=== PATIENT | male | born 1955 | race Caucasian/White ===

== ENCOUNTER 2019-02-23 17:43 | Inpatient (IN) | payer OTHER ==
[~2019-02-23] VITALS: Ht 170.2 cm; Wt 103.0 kg
[~2019-02-23 17:43] MED LIST: ASPI-903 PO; CARV6.2579 PO; HYDR-3601 PO; HYDR-762 PO; LISI10TA2 PO; NITR-58 PO; SIMV40TA3 PO; TAMS-14 PO; TOR15I IV
[2019-02-23] MEDS ORDERED: SOD CHLORIDE 0.9% 500 ML IV STA (19:26)
--- NOTE | 2019-02-23 19:28 | ERD ---
ER Documentation Chief Complaint Chief Complaint mid epigastric pain with mild n/v x 1 day ROS All systems reviewed and are negative except as per history of present illness. Medications Home Meds Active Scripts Nitrofurantoin Monohyd Macrocr* (Macrobid*) 100 Mg Capsr, 100 MG PO BID for 14 Days, CAP Prov:JOHNNY DURAND 01/09/15 Ketorolac Tromethamine* (Toradol*) 15 Mg/Ml Soln, 15 MG IV Q6H PRN for PAIN, #20 VIAL Prov:JOHNNY DURAND 01/09/15 Tamsulosin Hcl* (Flomax*) 0.4 Mg Cap.er.24h, 0.4 MG PO DAILY for 30 Days, CAP Prov:JOHNNY DURAND 01/09/15 Hydrocodone Bit-Acetaminophen* ([place]*) 10-325 Mg Tablet, 1 TAB PO Q6 PRN for PAIN, #10 TAB Prov:JOHNNY DURAND 01/09/15 Reported Medications Carvedilol* (Carvedilol*) 6.25 Mg Tablet, 6.25 MG PO BID, TAB 01/09/15 Simvastatin (Simvastatin) 40 Mg Tablet, 40 MG PO HS, TAB 01/09/15 Aspirin* (Aspirin* Chew) 81 Mg Tab.chew, 81 MG PO DAILY, TAB.CHEW 01/09/15 Lisinopril* (Lisinopril*) 10 Mg Tablet, 10 MG PO DAILY, TAB 01/09/15 Allergies Allergies: Coded Allergies: No Known Allergy (Unverified , 01/09/15) PMhx/Soc Medical and Surgical Hx: pt denies Surgical Hx History of Surgery: Yes (HEART SURGERY) Anesthesia Reaction: No Hx Neurological Disorder: No Hx Respiratory Disorders: No Hx Cardiac Disorders: No Hx Psychiatric Problems: No Hx Miscellaneous Medical Probl: No Hx Alcohol Use: No Hx Substance Use: No Hx Tobacco Use: No Smoking Status: Never smoker Physical Exam Vitals Vital Signs Date Temp Pulse Resp B/P (MAP) Pulse Ox O2 O2 Flow FiO2 Time Delivery Rate 02/23/19 99.2 87 16 133/89 97 18:13 (104) Result Diagram: 02/23/19195802/23/191958 Results 24 hrs Laboratory Tests Test 02/23/19 19:35 02/23/19 19:59 Urine Color YELLOW Urine Clarity CLEAR Urine pH 5.0 Urine Specific [place] 1.019 Urine Ketones NEGATIVE mg/dL Urine Nitrite NEGATIVE mg/dL Urine Bilirubin NEGATIVE mg/dL Urine Urobilinogen NEGATIVE mg/dL Urine Leukocyte Esterase NEGATIVE Lisy/ul Urine Microscopic RBC 0 /HPF Urine Microscopic WBC 1 /HPF Urine Mucus FEW /HPF Urine Hemoglobin 1+ mg/dL Urine Glucose NEGATIVE mg/dL Urine Total Protein NEGATIVE mg/dl White Blood Count 9.2 10^3/ul Red Blood Count 5.22 10^6/ul Hemoglobin 15.1 g/dl Hematocrit 47.3 % Mean Corpuscular Volume 90.6 fl Mean Corpuscular Hemoglobin 28.9 pg Mean Corpuscular Hemoglobin Concent 31.9 g/dl Red Cell Distribution Width 13.5 % Platelet Count 295 10^3/UL Mean Platelet Volume 9.0 fl Immature Granulocytes % 0.400 % Neutrophils % 67.5 % Lymphocytes % 22.5 % Monocytes % 8.5 % Eosinophils % 0.8 % Basophils % 0.3 % Nucleated Red Blood Cells % 0.0 /100WBC Immature Granulocytes # 0.040 10^3/ul Neutrophils # 6.2 10^3/ul Lymphocytes # 2.1 10^3/ul Monocytes # 0.8 10^3/ul Eosinophils # 0.1 10^3/ul Basophils # 0.0 10^3/ul Nucleated Red Blood Cells # 0.0 10^3/ul Sodium Level 139 mmol/L Potassium Level 4.2 mmol/L Chloride Level 104 mmol/L Carbon Dioxide Level 26 mmol/L Anion Gap 9 Blood Urea Nitrogen 11 mg/dl Creatinine 1.40 mg/dl Est Glomerular Filtrat Rate mL/min 51 mL/min Glucose Level 111 mg/dl Calcium Level 9.6 mg/dl Total Bilirubin 1.0 mg/dl Direct Bilirubin 0.00 mg/dl Indirect Bilirubin 1.0 mg/dl Aspartate Amino Transf (AST/SGOT) 22 IU/L Alanine Aminotransferase (ALT/SGPT) 19 IU/L Alkaline Phosphatase 58 IU/L Troponin I < 0.012 ng/ml Total Protein 8.1 g/dl Albumin 4.2 g/dl Globulin 3.90 g/dl Albumin/Globulin Ratio 1.07 Lipase 20 U/L Current Medications Medications Dose Sig/Landry Start Time Status Last (Trade) Ordered Route PRN Stop Time Admin Dose Reason Admin Sodium 500 ml @ Q1H STAT 02/23/19 DC 02/23/19 Chloride 500 mls/hr IV 19:26 19:49 02/23/19 20:25 Morphine 1 mg ONCE STAT 02/23/19 DC 02/23/19 Sulfate IV 19:29 19:49 (morphine) 02/23/19 19:30 40 ml ONCE ONCE 02/23/19 DC 02/23/19 Miscellaneous PO 19:30 19:49 Medication 02/23/19 19:31 (Gi Cocktail (2)) Morphine 2 mg ONCE STAT 02/23/19 DC 02/23/19 Sulfate IV 21:07 21:11 (morphine) 02/23/19 21:09 EKG read by me: Rate/Rhythm: Regular rate and rhythm at a rate of 78 Intervals: Normal No acute ST changes. No T wave inversion Impression: No evidence of acute ischemia or arrhythmia Departure Condition: Stable PEBBLES HAIDER MD Feb 23, 2019 19:28
[2019-02-23] MEDS ORDERED: morphine 2 MG INJ IV STA ×2 (19:29→21:07)
[2019-02-23] MEDS ORDERED: LIDOCAINE/MYLANTA 40 ML BTL PO ONE (19:30)
--- NOTE | 2019-02-23 22:16 | ERD ---
ER Documentation Chief Complaint Chief Complaint epigastric pain 1 day HPI The patient is a 62-year-old male, presenting to the ER because of epigastric" abdominal pain for 1 day, denies similar symptoms previously, denies fever, chi lls, neck pain, chest pain, dyspnea. The abdominal pain is moderate, worse with eating. He denies of vomiting, diarrhea, complains of constipation, denies dysuria. He does not smoke nor drink Past medical history: Hypertension, dyslipidemia, CAD, history of kidney stone, cholelithiasis Past surgical history: Uncertain stent PCI ROS All systems reviewed and are negative except as per history of present illness. Medications Home Meds Active Scripts Nitrofurantoin Monohyd Macrocr* (Macrobid*) 100 Mg Capsr, 100 MG PO BID for 14 Days, CAP Prov:KYM DURANDAR 01/09/15 Ketorolac Tromethamine* (Toradol*) 15 Mg/Ml Soln, 15 MG IV Q6H PRN for PAIN, #20 VIAL Prov:JOHNNY DURAND 01/09/15 Tamsulosin Hcl* (Flomax*) 0.4 Mg Cap.er.24h, 0.4 MG PO DAILY for 30 Days, CAP Prov:KYM DURANDAR 01/09/15 Hydrocodone Bit-Acetaminophen* ([place]*) 10-325 Mg Tablet, 1 TAB PO Q6 PRN for PAIN, #10 TAB Prov:JOHNNY DURAND 01/09/15 Reported Medications Carvedilol* (Carvedilol*) 6.25 Mg Tablet, 6.25 MG PO BID, TAB 01/09/15 Simvastatin (Simvastatin) 40 Mg Tablet, 40 MG PO HS, TAB 01/09/15 Aspirin* (Aspirin* Chew) 81 Mg Tab.chew, 81 MG PO DAILY, TAB.CHEW 01/09/15 Lisinopril* (Lisinopril*) 10 Mg Tablet, 10 MG PO DAILY, TAB 01/09/15 Allergies Allergies: Coded Allergies: No Known Allergy (Unverified , 01/09/15) PMhx/Soc Medical and Surgical Hx: pt denies Surgical Hx History of Surgery: Yes (HEART SURGERY) Anesthesia Reaction: No Hx Neurological Disorder: No Hx Respiratory Disorders: No Hx Cardiac Disorders: No Hx Psychiatric Problems: No Hx Miscellaneous Medical Probl: No Hx Alcohol Use: No Hx Substance Use: No Hx Tobacco Use: No Smoking Status: Never smoker Physical Exam Vitals Vital Signs Date Temp Pulse Resp B/P (MAP) Pulse Ox O2 O2 Flow FiO2 Time Delivery Rate 02/23/19 99.2 87 16 133/89 97 18:13 (104) Physical Exam Const: No acute distress. Head: Atraumatic. Eyes: Normal Conjunctiva. ENT: Normal External Ears, Nose and Mouth. Neck: Full range of motion. No meningismus. Resp: Clear to auscultation bilaterally. Cardio: Regular rate and rhythm. Abd: Soft, non distended, normal bowel sounds, epigastric and right upper quadrant tenderness, no rigidity/rebound/CVA tenderness Skin: No petechiae or rashes. Back: No midline or flank tenderness. Ext: No cyanosis, or edema. Neur: Awake and alert. No focal deficit Psych: Normal Mood and Affect. Result Diagram: 02/23/19195802/23/191958 Results 24 hrs Laboratory Tests Test 02/23/19 19:35 02/23/19 19:59 Urine Color YELLOW Urine Clarity CLEAR Urine pH 5.0 Urine Specific [place] 1.019 Urine Ketones NEGATIVE mg/dL Urine Nitrite NEGATIVE mg/dL Urine Bilirubin NEGATIVE mg/dL Urine Urobilinogen NEGATIVE mg/dL Urine Leukocyte Esterase NEGATIVE Lisy/ul Urine Microscopic RBC 0 /HPF Urine Microscopic WBC 1 /HPF Urine Mucus FEW /HPF Urine Hemoglobin 1+ mg/dL Urine Glucose NEGATIVE mg/dL Urine Total Protein NEGATIVE mg/dl White Blood Count 9.2 10^3/ul Red Blood Count 5.22 10^6/ul Hemoglobin 15.1 g/dl Hematocrit 47.3 % Mean Corpuscular Volume 90.6 fl Mean Corpuscular Hemoglobin 28.9 pg Mean Corpuscular Hemoglobin Concent 31.9 g/dl Red Cell Distribution Width 13.5 % Platelet Count 295 10^3/UL Mean Platelet Volume 9.0 fl Immature Granulocytes % 0.400 % Neutrophils % 67.5 % Lymphocytes % 22.5 % Monocytes % 8.5 % Eosinophils % 0.8 % Basophils % 0.3 % Nucleated Red Blood Cells % 0.0 /100WBC Immature Granulocytes # 0.040 10^3/ul Neutrophils # 6.2 10^3/ul Lymphocytes # 2.1 10^3/ul Monocytes # 0.8 10^3/ul Eosinophils # 0.1 10^3/ul Basophils # 0.0 10^3/ul Nucleated Red Blood Cells # 0.0 10^3/ul Sodium Level 139 mmol/L Potassium Level 4.2 mmol/L Chloride Level 104 mmol/L Carbon Dioxide Level 26 mmol/L Anion Gap 9 Blood Urea Nitrogen 11 mg/dl Creatinine 1.40 mg/dl Est Glomerular Filtrat Rate mL/min 51 mL/min Glucose Level 111 mg/dl Calcium Level 9.6 mg/dl Total Bilirubin 1.0 mg/dl Direct Bilirubin 0.00 mg/dl Indirect Bilirubin 1.0 mg/dl Aspartate Amino Transf (AST/SGOT) 22 IU/L Alanine Aminotransferase (ALT/SGPT) 19 IU/L Alkaline Phosphatase 58 IU/L Troponin I < 0.012 ng/ml Total Protein 8.1 g/dl Albumin 4.2 g/dl Globulin 3.90 g/dl Albumin/Globulin Ratio 1.07 Lipase 20 U/L Current Medications Medications Dose Sig/Landry Start Time Status Last (Trade) Ordered Route PRN Stop Time Admin Dose Reason Admin Sodium 500 ml @ Q1H STAT 02/23/19 DC 02/23/19 Chloride 500 mls/hr IV 19:26 19:49 02/23/19 20:25 Morphine 1 mg ONCE STAT 02/23/19 DC 02/23/19 Sulfate IV 19:29 19:49 (morphine) 02/23/19 19:30 40 ml ONCE ONCE 02/23/19 DC 02/23/19 Miscellaneous PO 19:30 19:49 Medication 02/23/19 19:31 (Gi Cocktail (2)) Morphine 2 mg ONCE STAT 02/23/19 DC 02/23/19 Sulfate IV 21:07 21:11 (morphine) 02/23/19 21:09 Ondansetron 4 mg ONCE STAT 02/23/19 DC 02/24/19 HCl (Zofran IV 23:52 00:09 Inj) 02/24/19 00:06 0.5 mg ONCE STAT 02/23/19 DC 02/24/19 Hydromorphone IV 23:52 00:09 HCl 02/24/19 00:06 (Dilaudid) Sodium 1,000 ml @ [id number] IV 02/24/19 Chloride 70 mls/hr 00:00 IV Flush 3 ml PER 02/24/19 (NS 3 ml) PROTOCOL IV 00:00 Ondansetron 4 mg Q6H PRN 02/24/19 HCl (Zofran IV 00:00 Inj) NAUSEA/VOMITI NG 650 mg Q6H PRN 02/24/19 Acetaminophen PO .PAIN 1-3 00:00 (Tylenol OR TEMP Tab) 0.5 mg Q4H PRN 02/24/19 Hydromorphone IV .SEVERE 00:00 HCl PAIN 7-10 (Dilaudid) Docusate 100 mg Q12H PRN 02/24/19 Sodium PO 00:00 (Colace) .CONSTIPATION Bisacodyl 5 mg DAILY PRN 02/24/19 (Dulcolax) PO 00:00 .CONSTIPATION Procedures/[place] [address] Radiology Main Line: [phone] DIAGNOSTIC IMAGING REPORT Patient: PONCE BHATTI : 1955 Age: 63 Sex: M MR #: [id number] DOS: 02/23/19 2210 Ordering MD: HUNG GUTIERREZ MD Location: [facility] Room/Bed: PROCEDURE: Abdominal ultrasound, limited. CLINICAL INDICATION: Abdominal pain. TECHNIQUE: Multiple real-time images were acquired of the patient's right upper abdomen utilizing a high resolution transducer. COMPARISON: None FINDINGS: The liver demonstrates normal echogenicity and size measuring 16.1 cm. There is no focal mass or intrahepatic biliary ductal dilatation. The portal vein is patent. The gallbladder is not distended. There is an echogenic gallstone within the gallbladder neck measuring 1.3 cm. There is no pericholecystic fluid. There is mild gallbladder wall thickening measuring 3.4 mm. The common bile duct measures 3.9 mm in maximal dimension. The pancreas is obscured by overlying bowel gas. No free fluid is identified. The right kidney is normal size and echogenicity measuring 9.3 cm. There is no focal renal mass or echogenic calculus identified. There is no obstructive uropathy. IMPRESSION: Cholelithiasis with mild gallbladder wall thickening. Pancreas obscured by overlying bowel gas. .Yovani Olmedo, MD, MD Date Time Electronically viewed and signed by .Yovani Olmedo MD, MD on 02/23/2019 23:33 .T/ CC: HUNG GUTIERREZ MD [id number] [place] [address] Radiology Main Line: [phone] DIAGNOSTIC IMAGING REPORT Patient: PONCE BHATTI : 1955 Age: 63 Sex: M MR #: [id number] DOS: 02/23/191925 Ordering MD: PEBBLES HAIDER MD Location: [facility] Room/Bed: PROCEDURE: CT abdomen and pelvis without contrast. CLINICAL INDICATION: Abdominal epigastric pain. TECHNIQUE: CT scan of the abdomen and pelvis without contrast was performed. Sagittal and coronal reformatted images were obtained from the axial source images. DICOM images are available. One or more of the following dose reduction techniques were used: Automated exposure control, adjustment of the mA and/or kV according to patient size, use of iterative reconstruction technique. CTDI = 20.61 mGy; DLP = 1449.42 mGy-cm COMPARISON: 01/09/2015 FINDINGS: Visualized lower thorax: The lung bases are clear. There is no evidence for pleural effusion. The visualized heart is borderline enlarged Liver, gallbladder, pancreas and spleen: The liver is normal and size, contour and attenuation. There is no evidence for a liver mass or ductal dilatation. Cholelithiasis with interval development of gallbladder hydrops and pericholecystic inflammation concerning for acute cholecystitis. No common bile duct abnormality is demonstrated. Fatty infiltration of the pancreas is present without evidence of pancreatitis. The spleen is normal in size. Adrenal glands and genitourinary system: The adrenal glands are normal bilaterally. Development of a 2 mm right upper pole renal calculus without hy dronephrosis. The left kidney is unremarkable, mild bilateral perinephric inflammatory fat stranding is similar to the prior study. The ureters are unremarkable. No urinary bladder abnormality is demonstrated. The prostate gland is normal in size. The scrotum shows no gross abnormality. Gastrointestinal system: The stomach is normal in caliber with no abnormality of significance. The small bowel is normal in caliber with no ileus, obstruction or wall thickening. There is no evidence of appendicitis. Mild constipation pattern is present. There is no evidence for colitis or diverticulitis. Peritoneum, retroperitoneum, lymph nodes and vessels: The abdominal aorta is normal in caliber. There is mild aortic and iliac system atherosclerotic calcification. The inferior vena cava is unremarkable. There is no evidence for adenopathy or mass. There is no ascites. No pneumoperitoneum is present Osseous structures and musculoskeletal findings: There is no fracture, lytic or blastic lesion. Vacuum disc phenomenon with degenerative disc disease at L4-5 and L5-S1 is present. A small fat-containing umbilical hernia is seen No muscular abnormality or soft tissue pathology is present. RPTAT:HJJR IMPRESSION: 1. Compared to the prior CT of 01/09/2015, there has been development of gallbladder hydrops and pericholecystic inflammation in this patient with previously seen cholelithiasis, findings concerning for acute cholecystitis. Consider follow-up evaluation with a nuclear medicine HIDA scan. 2. Interval development of 2 mm right upper pole renal calculus without hy dronephrosis with interval passage of the previously seen distal left ureteral calculus. 3. Fatty atrophy of the pancreas is again noted. 4. Mild constipation pattern. 5. Aortic atherosclerosis is present. 6. Degenerative disc disease at the lower lumbar levels. Physician Nadine Date Time Electronically viewed and signed by Frederick An Physician on 02/23/2019 21:44 JR/ CC: PEBBLES HAIDER MD [id number] [place] [address] Radiology Main Line: [phone] DIAGNOSTIC IMAGING REPORT Patient: PONCE BHATTI : 1955 Age: 63 Sex: M MR #: [id number] DOS: 02/23/19 0000 Ordering MD: PEBBLES HAIDER MD Location: [facility] Room/Bed: PROCEDURE: DX CHEST 1 VIEW CLINICAL INDICATION: Epigastric pain. ED patient. TECHNIQUE: AP Portable chest. COMPARISON: None FINDINGS: Normal cardiac and mediastinal configuration. Aortic calcified plaque absent. No CHF or hilar enlargement. Lungs are clear. No free air under the hemidiaphragms. IMPRESSION: No acute disease. RPTAT: HLRS Darrel Cleaning Physician Date Time Electronically viewed and signed by Darrel Cleaning Physician on 02/23/2019 21:04 RS/ CC: PEBBLES HAIDER MD [id number] EKG: At 7:09 PM read by emergency physician Rate/Rhythm: Normal Sinus Rhythm 78 beats/min QRS, ST, T-waves: No ST elevation, no T inversion low voltage, inferior Q waves Impression: Abnormal EKG EKG: At 9:28 PM read by emergency physician Rate/Rhythm: Normal Sinus Rhythm 75 beats/min QRS, ST, T-waves: No ST elevation, no T inversion low voltage, inferior Q waves Impression: Abnormal EKG Consultation: I notified the call general surgeon Dr. Peacock at 11:50 PM via [email or web address] MEDICAL MAKING DECISION: The patient is a 63-year-old male, presenting with acute symptomatic cholelithiasis, concerning for acute cholecystitis, will need HIDA scan for confirmation He was treated Zofran IV for nausea, Dilaudid 0.5 mg IV and morphine 2 mg IV for pain with good response. The differential diagnoses considered include but are not limited to cholelithiasis, cholecystitis, renal colic, choledocholithiasis, cholangitis, pancreatitis, hepatitis, gastritis, peptic ulcer disease, gastric ulcer, nasra endicitis, cystitis, diverticulitis, partial small bowel obstruction. Departure Diagnosis: Primary Impression: Symptomatic cholelithiasis Additional Impressions: Renal insufficiency Hematuria Condition: Stable Additional Instructions: I discussed the findings with the patient. I notified the patient with Dr. Koch at 11:55 PM via [email or web address] , who was made aware of the lab, the treatment, the patient condition. The patient is admitted to [facility] Disclaimer: Inadvertent spelling and grammatical errors are likely due to EHR/dictation software use and do not reflect on the overall quality of patient care. Also, please note that the electronic time recorded on this note does not necessarily reflect the actual time of the patient encounter. HUNG GUTIERREZ MD Feb 23, 2019 22:16
[2019-02-23] MEDS ORDERED: ONDANSETRON 4 MG INJ IV STA (23:52)
[2019-02-23] MEDS ORDERED: HYDROmorphONE 0.5 MG/0.5 ML SYG IV STA (23:52)
[2019-02-24] MEDS ORDERED: ACETAMINOPHEN 325 MG TAB PO PRN
[2019-02-24] MEDS ORDERED: DOCUSATE SODIUM 100 MG CAP PO PRN
[2019-02-24] MEDS ORDERED: BISACODYL (EC) 5 MG TAB PO PRN
[2019-02-24] MEDS ORDERED: ONDANSETRON 4 MG INJ IV PRN
[2019-02-24] MEDS ORDERED: NACL 0.9% 3 ML SYG IV SCH
--- NOTE | 2019-02-24 00:06 | HP ---
Date/Time of Note Date/Time of Note DATE: 02/24/19 TIME: 00:05 Assessment/Plan VTE Prophylaxis SCD applied (from Nsg): Yes Pharmacological prophylaxis: NA/contraindicated Pharm contraindication: low risk/ambulating Lines/Catheters IV Catheter Type (from Nrsg): Saline Lock Assessment/Plan Hospital Course This is a 63-year-old male being admitted to the [facility] [place] floor for: 1 right upper quadrant pain: Symptomatic cholelithiasis versus early acute cholecystitis. Patient does not have a white blood cell count or fever. However imaging studies do show possible signs of acute cholecystitis. Will obtain HIDA scan. Will put the patient on prophylactic Zosyn. Will advise pain management. Zofran for nausea. General surgery Dr. Peacock has already been been consulted by the ED. Will follow up on recommendations. 2. Coronary artery disease: History of GA., Possible extends 3 Acute kidney injury versus acute on chronic kidney injury: Creatinine of 1.4. This possibly could be chronic. Avoid nephrotoxic agents. Hydrate the patient normal saline. 4 DVT GI prophylaxis: SCDs, no GI prophylaxis indicated Further treatment strategy will be implemented as per the clinical course. Result Diagram: 02/23/19195802/23/191958 Results 24hrs Laboratory Tests Test 02/23/19 19:35 02/23/19 19:59 Urine Color YELLOW Urine Clarity CLEAR Urine pH 5.0 Urine Specific [place] 1.019 Urine Ketones NEGATIVE Urine Nitrite NEGATIVE Urine Bilirubin NEGATIVE Urine Urobilinogen NEGATIVE Urine Leukocyte Esterase NEGATIVE Urine Microscopic RBC 0 Urine Microscopic WBC 1 Urine Mucus FEW A Urine Hemoglobin 1+ H Urine Glucose NEGATIVE Urine Total Protein NEGATIVE White Blood Count 9.2 # Red Blood Count 5.22 Hemoglobin 15.1 Hematocrit 47.3 Mean Corpuscular Volume 90.6 Mean Corpuscular Hemoglobin 28.9 L Mean Corpuscular Hemoglobin Concent 31.9 L Red Cell Distribution Width 13.5 Platelet Count 295 Mean Platelet Volume 9.0 Immature Granulocytes % 0.400 Neutrophils % 67.5 Lymphocytes % 22.5 Monocytes % 8.5 Eosinophils % 0.8 Basophils % 0.3 Nucleated Red Blood Cells % 0.0 Immature Granulocytes # 0.040 H Neutrophils # 6.2 Lymphocytes # 2.1 Monocytes # 0.8 Eosinophils # 0.1 Basophils # 0.0 Nucleated Red Blood Cells # 0.0 Sodium Level 139 Potassium Level 4.2 Chloride Level 104 Carbon Dioxide Level 26 Anion Gap 9 Blood Urea Nitrogen 11 Creatinine 1.40 H Est Glomerular Filtrat Rate mL/min 51 L Glucose Level 111 Calcium Level 9.6 Total Bilirubin 1.0 Direct Bilirubin 0.00 Indirect Bilirubin 1.0 Aspartate Amino Transf (AST/SGOT) 22 Alanine Aminotransferase (ALT/SGPT) 19 Alkaline Phosphatase 58 Troponin I < 0.012 Total Protein 8.1 Albumin 4.2 Globulin 3.90 H Albumin/Globulin Ratio 1.07 Lipase 20 L HPI/ROS Admit Date/Time Admit Date/Time Hx of Present Illness The patient is a 62-year-old male, presenting to the ER because of epigastric" abdominal pain for 1 day, denies similar symptoms previously, denies fever, chills, neck pain, chest pain, dyspnea. The abdominal pain is moderate, worse with eating. He denies of vomiting, diarrhea, complains of constipation, denies dysuria. He does not smoke nor drink ROS Const: As per HPI Eyes : No pain discharge or redness or change in visual acuity ENT: No pain, sore throat, congestion, congestion, dysphagia or discharge Respiratory: No shortness of breath, cough, sputum, wheezing, or pleuritic pain Cardiovascular: No chest pain, palpitation, PND, or edema GI : As per HPI Genitourinary: No dysuria, hematuria, flank pain , discharge or CVA tenderness Musculoskeletal: No joint pain, back pain, neck pain, restricted range of motion in neck or joints Skin: No rash, bruising or hives Neuro: No headache, dizziness, syncope, seizure, focal weakness Endocrine: No polyuria, polydipsia, temperature intolerance Psych: No hallucination, depression, anxiety or suicidal ideation PMH/Family/Social Past Medical History Hypertension, dyslipidemia, CAD, history of kidney stone, history of GA Medications Current Medications Ondansetron HCl (Zofran Inj) 4 mg ONCE STAT IV ; Start 02/23/19 at 23:52; Stop 02/23/19 at 23:53; Status UNV Hydromorphone HCl (Dilaudid) 0.5 mg ONCE STAT IV ; Start 02/23/19 at 23:52; Stop 02/23/19 at 23:53; Status UNV Coded Allergies: No Known Allergy (Unverified , 01/09/15) Past Surgical History Uncertain stent PCI Family History Significant Family History: no pertinent family hx Social History Alcohol Use: none Smoking Status: Never smoker Drug Use: none Exam/Review of Systems Vital Signs Vitals Vital Signs Date Temp Pulse Resp B/P (MAP) Pulse Ox O2 O2 Flow FiO2 Time Delivery Rate 02/23/19 99.2 87 16 133/89 97 18:13 (104) Intake and Output 02/23/19 02/23/19 02/24/19 1515:00 23:00 07:00 IntakeIntake Total 500 ml BalanceBalance 500 ml Exam Exam General: Pleasant male currently lying in bed in no acute distress HEENT: Atraumatic, normocephalic. The pupils are equal, round and reactive. Extraocular motor are intact Neck: Supple with full range of motion. No rigidity or meningismus Chest: Nontender Lungs: Clear to auscultation bilaterally no crackles rales or wheezing Heart: Normal S1-S2, Regular rhythm and rate. No murmur, S3, or S4 Abdomen: Obese, soft , tenderness palpation of the right upper quadrant of the abdomen as well as left lower quadrant. No rebound or guarding. Extremities: Normal to inspection, no edema no cyanosis Neurologic: Normal mental status, speech normal, cranial nerves II through XII are intact, motor and sensory are intact, Additional Comments PROCEDURE: Abdominal ultrasound, limited. CLINICAL INDICATION: Abdominal pain. TECHNIQUE: Multiple real-time images were acquired of the patient's right upper abdomen utilizing a high resolution transducer. COMPARISON: None FINDINGS: The liver demonstrates normal echogenicity and size measuring 16.1 cm. There is no focal mass or intrahepatic biliary ductal dilatation. The portal vein is patent. The gallbladder is not distended. There is an echogenic gallstone within the gallbladder neck measuring 1.3 cm. There is no pericholecystic fluid. There is mild gallbladder wall thickening measuring 3.4 mm. The common bile duct measures 3.9 mm in maximal dimension. The pancreas is obscured by overlying bowel gas. No free fluid is identified. The right kidney is normal size and echogenicity measuring 9.3 cm. There is no focal renal mass or echogenic calculus identified. There is no obstructive uropathy. IMPRESSION: Cholelithiasis with mild gallbladder wall thickening. Pancreas obscured by overlying bowel gas. .Yovani Olmedo MD, MD Date Time Electronically viewed and signed by .Yovani Olmedo MD, MD on 02/23/2019 23:33 .T/ CC: HUNG GUTIERREZ MD [id number] PROCEDURE: CT abdomen and pelvis without contrast. CLINICAL INDICATION: Abdominal epigastric pain. TECHNIQUE: CT scan of the abdomen and pelvis without contrast was performed. Sagittal and coronal reformatted images were obtained from the axial source images. DICOM images are available. One or more of the following dose reduction techniques were used: Automated exposure control, adjustment of the mA and/or kV according to patient size, use of iterative reconstruction technique. CTDI = 20.61 mGy; DLP = 1449.42 mGy-cm COMPARISON: 01/09/2015 FINDINGS: Visualized lower thorax: The lung bases are clear. There is no evidence for pleural effusion. The visualized heart is borderline enlarged Liver, gallbladder, pancreas and spleen: The liver is normal and size, contour and attenuation. There is no evidence for a liver mass or ductal dilatation. Cholelithiasis with interval development of gallbladder hydrops and pericholecystic inflammation concerning for acute cholecystitis. No common bile duct abnormality is demonstrated. Fatty infiltration of the pancreas is present without evidence of pancreatitis. The spleen is normal in size. Adrenal glands and genitourinary system: The adrenal glands are normal bilaterally. Development of a 2 mm right upper pole renal calculus without hydronephrosis. The left kidney is unremarkable, mild bilateral perinephric inflammatory fat stranding is similar to the prior study. The ureters are unremarkable. No urinary bladder abnormality is demonstrated. The prostate gland is normal in size. The scrotum shows no gross abnormality. Gastrointestinal system: The stomach is normal in caliber with no abnormality of significance. The small bowel is normal in caliber with no ileus, obstruction or wall thickening. There is no evidence of appendicitis. Mild constipation pattern is present. There is no evidence for colitis or divert iculitis. Peritoneum, retroperitoneum, lymph nodes and vessels: The abdominal aorta is normal in caliber. There is mild aortic and iliac system atherosclerotic calcification. The inferior vena cava is unremarkable. There is no evidence for adenopathy or mass. There is no ascites. No pneumoperitoneum is present Osseous structures and musculoskeletal findings: There is no fracture, lytic or blastic lesion. Vacuum disc phenomenon with degenerative disc disease at L4-5 and L5-S1 is present. A small fat-containing umbilical hernia is seen No muscular abnormality or soft tissue pathology is present. RPTAT:HJJR IMPRESSION: 1. Compared to the prior CT of 01/09/2015, there has been development of gallbladder hydrops and pericholecystic inflammation in this patient with previously seen cholelithiasis, findings concerning for acute cholecystitis. Consider follow-up evaluation with a nuclear medicine HIDA scan. 2. Interval development of 2 mm right upper pole renal calculus without hydronephrosis with interval passage of the previously seen distal left ureteral calculus. 3. Fatty atrophy of the pancreas is again noted. 4. Mild constipation pattern. 5. Aortic atherosclerosis is present. 6. Degenerative disc disease at the lower lumbar levels. Frederick An Physician Date Time Electronically viewed and signed by Physician Nadine on 02/23/2019 21:44 JR/ CC: PEBBLES HAIDER MD [id number] PROCEDURE: DX CHEST 1 VIEW CLINICAL INDICATION: Epigastric pain. ED patient. TECHNIQUE: AP Portable chest. COMPARISON: None FINDINGS: Normal cardiac and mediastinal configuration. Aortic calcified plaque absent. No CHF or hilar enlargement. Lungs are clear. No free air under the hemidiaphragms. IMPRESSION: No acute disease. RPTAT: HLRS Darrel Cleaning, Physician Date Time Electronically viewed and signed by Physician Riccardo on 02/23/2019 21:04 RS/ CC: PEBBLES HAIDER MD [id number] TRISH CASTLE Feb 24, 2019 00:06
[2019-02-24] MEDS ORDERED: PIPER-TAZO 3.375 GM IV (PMX) 100 ML IVPB SCH (01:30)
[2019-02-24 02:56] VITALS: BP 126/81; PULSE 70; RESP 18
[2019-02-24] MEDS: SOD CHLORIDE 0.9% 1,000 ML IV SCH ×3 (03:11→21:46)
[2019-02-24] MEDS: HYDROmorphONE 0.5 MG/0.5 ML SYG IV PRN ×2 (03:14→18:02)
[2019-02-24 04:14] VITALS: Ht 170.2 cm; Wt 103.0 kg
[2019-02-24 07:18] VITALS: BP 98/64; PULSE 76; RESP 18
[2019-02-24] MEDS: LISINOPRIL 10 MG TAB PO SCH (09:00)
[2019-02-24] MEDS: PIPER-TAZO 3.375 GM IV (PMX) 100 ML IVPB SCH ×3 (09:02→18:57)
[2019-02-24] MEDS: ASPIRIN 81 MG TAB PO SCH (09:03)
--- NOTE | 2019-02-24 12:18 | PN ---
Date/Time of Note Date/Time of Note DATE: 02/24/19 TIME: 12:16 Assessment/Plan VTE Prophylaxis Risk score (from Ns)>0 risk: 3 SCD applied (from Ns): Yes Pharmacological prophylaxis: NA/contraindicated Pharm contraindication: low risk/ambulating Lines/Catheters IV [facility]from [facility] Peripheral IV Urinary Cath still in place: No Assessment/Plan Hospital Course SUBJECTIVE: Denies any nausea or vomiting. Continues to have abdominal pain. OBJECTIVE: Physical Exam General: Morbidly obese, 63 year-old male lying in bed in no apparent distress. HEENT: Normocephalic, atraumatic. Eyes: Anicteric sclerae, conjunctivae clear. ENT: Nasal septum midline, oral mucosa moist. Neck supple. Respiratory: Bilaterally clear breath sounds. No use of accessory muscles of respiration. No adventitious breath sounds. Cardiovascular: S1, S2 heard. Regular rate and rhythm. Abdomen: Soft and nondistended. Epigastric tenderness. Bowel sounds positive in all 4 quadrants. Genitourinary: Deferred. Extremities: No cyanosis, no clubbing, no edema. Peripheral pulses palpable. Neurologic: Cranial nerves II through XII grossly intact. The patient is awake, alert, and oriented. Skin: Normal skin turgor. No skin rashes. Labs & Vitals per chart ASSESSMENT & PLAN 63-year-old male with comorbidities including hypertension, dyslipidemia, CAD, and obesity who presented to the emergency room with chief complaint of epigastric abdominal pain with CT evidence of gallbladder hydrops and pericholecystic inflammation concerning for acute cholecystitis, was admitted to inpatient setting for further treatment and evaluation. 1. Symptomatic cholelithiasis. Possible underlying acute cholecystitis. Keep the patient n.p.o. Pending HIDA scan. Continue empiric antimicrobials including coverage for anaerobes. Continue pain control. Pending general surgery consult. 2. CAD with history of stents. Continue cardiac medications. 3. Acute kidney injury. Possible underlying CKD. Monitor BUN and creatinine closely. Use nephrotoxic drugs with caution. 4. DVT prophylaxis. B/L SCDs. 5. Obesity. BMI: 35 kg/m. Therapeutic lifestyle changes. 6. Plan. Continue pain control. N.p.o. Continue antibiotics. HIDA scan. Surgical evaluation. The patient was seen in collaboration with Dr. Lyons. Result Diagram: 02/24/19 0441 02/24/19 0441 Results 24hrs Laboratory Tests Test 02/23/19 19:35 02/23/19 19:59 02/24/19 04:41 Urine Color YELLOW Urine Clarity CLEAR Urine pH 5.0 Urine Specific [place] 1.019 Urine Ketones NEGATIVE Urine Nitrite NEGATIVE Urine Bilirubin NEGATIVE Urine Urobilinogen NEGATIVE Urine Leukocyte Esterase NEGATIVE Urine Microscopic RBC 0 Urine Microscopic WBC 1 Urine Mucus FEW A Urine Hemoglobin 1+ H Urine Glucose NEGATIVE Urine Total Protein NEGATIVE White Blood Count 9.2 # 7.9 Red Blood Count 5.22 4.96 Hemoglobin 15.1 14.4 Hematocrit 47.3 45.9 Mean Corpuscular Volume 90.6 92.5 Mean Corpuscular Hemoglobin 28.9 L 29.0 Mean Corpuscular Hemoglobin Concent 31.9 L 31.4 L Red Cell Distribution Width 13.5 13.7 Platelet Count 295 274 Mean Platelet Volume 9.0 9.3 Immature Granulocytes % 0.400 0.400 Neutrophils % 67.5 71.8 Lymphocytes % 22.5 16.4 Monocytes % 8.5 10.2 Eosinophils % 0.8 0.9 Basophils % 0.3 0.3 Nucleated Red Blood Cells % 0.0 0.0 Immature Granulocytes # 0.040 H 0.030 Neutrophils # 6.2 5.7 Lymphocytes # 2.1 1.3 Monocytes # 0.8 0.8 Eosinophils # 0.1 0.1 Basophils # 0.0 0.0 Nucleated Red Blood Cells # 0.0 0.0 Sodium Level 139 140 Potassium Level 4.2 4.1 Chloride Level 104 104 Carbon Dioxide Level 26 30 Anion Gap 9 6 Blood Urea Nitrogen 11 13 Creatinine 1.40 H 1.41 H Est Glomerular Filtrat Rate mL/min 51 L 50 L Glucose Level 111 112 Calcium Level 9.6 8.9 Total Bilirubin 1.0 1.3 Direct Bilirubin 0.00 0.00 Indirect Bilirubin 1.0 1.3 H Aspartate Amino Transf (AST/SGOT) 22 21 Alanine Aminotransferase (ALT/SGPT) 19 23 Alkaline Phosphatase 58 44 Troponin I < 0.012 Total Protein 8.1 7.1 # Albumin 4.2 3.6 Globulin 3.90 H 3.50 H Albumin/Globulin Ratio 1.07 1.02 Lipase 20 L Prothrombin Time 14.7 Prothrombin Time Ratio 1.1 INR International Normalized Ratio 1.14 Activated Partial Thromboplast Time 34.9 Hemoglobin A1c 5.4 Magnesium Level 2.0 Triglycerides Level 147 Cholesterol Level 146 LDL Cholesterol, Calculated 81 HDL Cholesterol 36 Cholesterol/HDL Ratio 4.0 Thyroid Stimulating Hormone (TSH) 1.910 Exam/Review of Systems Exam Vitals Vital Signs Date Temp Pulse Resp B/P (MAP) Pulse Ox O2 O2 Flow FiO2 Time Delivery Rate 02/24/19 99.7 76 18 98/64 (75) 97 Room Air 07:18 Intake and Output 02/23/19 02/23/19 02/24/19 1515:00 23:00 07:00 IntakeIntake Total 500 ml 240 ml BalanceBalance 500 ml 240 ml Results Results 24hrs Laboratory Tests Test 02/23/19 19:35 02/23/19 19:59 02/24/19 04:41 Urine Color YELLOW Urine Clarity CLEAR Urine pH 5.0 Urine Specific [place] 1.019 Urine Ketones NEGATIVE Urine Nitrite NEGATIVE Urine Bilirubin NEGATIVE Urine Urobilinogen NEGATIVE Urine Leukocyte Esterase NEGATIVE Urine Microscopic RBC 0 Urine Microscopic WBC 1 Urine Mucus FEW A Urine Hemoglobin 1+ H Urine Glucose NEGATIVE Urine Total Protein NEGATIVE White Blood Count 9.2 # 7.9 Red Blood Count 5.22 4.96 Hemoglobin 15.1 14.4 Hematocrit 47.3 45.9 Mean Corpuscular Volume 90.6 92.5 Mean Corpuscular Hemoglobin 28.9 L 29.0 Mean Corpuscular Hemoglobin Concent 31.9 L 31.4 L Red Cell Distribution Width 13.5 13.7 Platelet Count 295 274 Mean Platelet Volume 9.0 9.3 Immature Granulocytes % 0.400 0.400 Neutrophils % 67.5 71.8 Lymphocytes % 22.5 16.4 Monocytes % 8.5 10.2 Eosinophils % 0.8 0.9 Basophils % 0.3 0.3 Nucleated Red Blood Cells % 0.0 0.0 Immature Granulocytes # 0.040 H 0.030 Neutrophils # 6.2 5.7 Lymphocytes # 2.1 1.3 Monocytes # 0.8 0.8 Eosinophils # 0.1 0.1 Basophils # 0.0 0.0 Nucleated Red Blood Cells # 0.0 0.0 Sodium Level 139 140 Potassium Level 4.2 4.1 Chloride Level 104 104 Carbon Dioxide Level 26 30 Anion Gap 9 6 Blood Urea Nitrogen 11 13 Creatinine 1.40 H 1.41 H Est Glomerular Filtrat Rate mL/min 51 L 50 L Glucose Level 111 112 Calcium Level 9.6 8.9 Total Bilirubin 1.0 1.3 Direct Bilirubin 0.00 0.00 Indirect Bilirubin 1.0 1.3 H Aspartate Amino Transf (AST/SGOT) 22 21 Alanine Aminotransferase (ALT/SGPT) 19 23 Alkaline Phosphatase 58 44 Troponin I < 0.012 Total Protein 8.1 7.1 # Albumin 4.2 3.6 Globulin 3.90 H 3.50 H Albumin/Globulin Ratio 1.07 1.02 Lipase 20 L Prothrombin Time 14.7 Prothrombin Time Ratio 1.1 INR International Normalized Ratio 1.14 Activated Partial Thromboplast Time 34.9 Hemoglobin A1c 5.4 Magnesium Level 2.0 Triglycerides Level 147 Cholesterol Level 146 LDL Cholesterol, Calculated 81 HDL Cholesterol 36 Cholesterol/HDL Ratio 4.0 Thyroid Stimulating Hormone (TSH) 1.910 Medications Medication Current Medications Sodium Chloride 1,000 ml @ 70 mls/hr [id number] IV Last administered on 02/24/19at 03:11; Admin Dose 70 MLS/HR; Start 02/24/19 at 00:00 IV Flush (NS 3 ml) 3 ml PER PROTOCOL IV ; Start 02/24/19 at 00:00 Ondansetron HCl (Zofran Inj) 4 mg Q6H PRN IV NAUSEA/VOMITING; Start 02/24/19 at 00:00 Acetaminophen (Tylenol Tab) 650 mg Q6H PRN PO .PAIN 1-3 OR TEMP; Start 02/24/19 at 00:00 Hydromorphone HCl (Dilaudid) 0.5 mg Q4H PRN IV .SEVERE PAIN 7-10 Last administered on 02/24/19at 03:14; Admin Dose 0.5 MG; Start 02/24/19 at 00:00 Docusate Sodium (Colace) 100 mg Q12H PRN PO .CONSTIPATION; Start 02/24/19 at 00:00 Bisacodyl (Dulcolax) 5 mg DAILY PRN PO .CONSTIPATION; Start 02/24/19 at 00:00 Aspirin (Aspirin) 81 mg DAILY PO Last administered on 02/24/19at 09:03; Admin Dose 81 MG; Start 02/24/19 at 09:00 Carvedilol (Coreg) 6.25 mg BID PO ; Start 02/24/19 at 09:00 Lisinopril (Zestril) 10 mg DAILY PO ; Start 02/24/19 at 09:00 Tamsulosin HCl (Flomax) 0.4 mg DAILY@2100 PO ; Start 02/24/19 at 21:00 Piperacillin Sod/ Tazobactam Sod 100 ml @ 200 mls/hr Q6 IVPB Last administered on 02/24/19at 09:02; Admin Dose 200 MLS/HR; Start 02/24/19 at 08:00 GWEN CUI NP Feb 24, 2019 12:18
[2019-02-24 13:50] VITALS: BP 92/53; PULSE 73; RESP 19
[2019-02-24 20:00] VITALS: BP 93/53; PULSE 75; RESP 18
[2019-02-24] MEDS: TAMSULOSIN (SR) 0.4 MG CAP PO SCH (21:04)
[2019-02-24 21:19] VITALS: BP 102/57; PULSE 67
--- NOTE | 2019-02-24 23:18 | CONS ---
Assessment/Plan Assessment/Plan Hospital Course (Demo Recall) 1. Abdominal pain 2. Cholelithiasis 3. Possible cholecystitis -HIDA Pending -Pain control -N.p.o. -IV fluids -Possible OR for cholecystectomy 4. BMI 36 with morbid obesity -Diet and medication optimization -Encourage weight loss 5. Hypertension -Diet and medication optimization -Encourage weight loss 6. -Diet and medication optimization -Encourage weight loss 7. Coronary artery disease, history of [place], atherosclerosis -Cardiac and medical optimization 8. Renal calculus -Encourage judicious fluid consumption -Outpatient urology follow-up Thank you very much for consulting me in this patient's care, Consultation Date/Type/Reason Admit Date/Time Date of Consultation: Feb 24, 2019 Type of Consult General surgical Reason for Consultation Abdominal pain Gallstones possible cholecystitis BMI 36 Coronary disease Requesting Provider: TRISH CASTLE Date/Time of Note DATE: 02/24/19 TIME: 23:18 Hx of Present Illness Gumaro Fernandez is a 62-year-old male with comorbidities who presents with epigastric abdominal pain for 1 day without previous history of the same. He denies fever, chills, neck pain, chest pain, dyspnea, shortness of breath, cough, seizure, visual, neurologic changes. No dysuria. No change in color of skin I was urine or stool. No change in bowel habits. The abdominal pain is moderate, worse with eating. His work-up identifies gallstones. He is admitted and surgical consult is obtained for further evaluation and treatment. 12 point review of system is negative unless otherwise addressed in chart Past Medical History Hypertension, Dyslipidemia, CAD, History of [place] 2 mm right upper pole renal calculus without hydronephrosis with interval passage of the previously seen distal left ureteral calculus. Mild constipation pattern. Aortic atherosclerosis is present. Degenerative disc disease at the lower lumbar levels. Morbid obesity with BMI of 36 comorbidities Home Meds Active Scripts Nitrofurantoin Monohyd Macrocr* (Macrobid*) 100 Mg Capsr, 100 MG PO BID for 14 Days, CAP Prov:DURAND,JOHNNY 01/09/15 Ketorolac Tromethamine* (Toradol*) 15 Mg/Ml Soln, 15 MG IV Q6H PRN for PAIN, #20 VIAL Prov:DURAND,JOHNNY 01/09/15 Tamsulosin Hcl* (Flomax*) 0.4 Mg Cap.er.24h, 0.4 MG PO DAILY for 30 Days, CAP Prov:JOHNNY DURAND 01/09/15 Hydrocodone Bit-Acetaminophen* ([place]*) 10-325 Mg Tablet, 1 TAB PO Q6 PRN for PAIN, #10 TAB Prov:JOHNNY DURAND 01/09/15 Reported Medications Carvedilol* (Carvedilol*) 6.25 Mg Tablet, 6.25 MG PO BID, TAB 01/09/15 Simvastatin (Simvastatin) 40 Mg Tablet, 40 MG PO HS, TAB 01/09/15 Aspirin* (Aspirin* Chew) 81 Mg Tab.chew, 81 MG PO DAILY, TAB.CHEW 01/09/15 Lisinopril* (Lisinopril*) 10 Mg Tablet, 10 MG PO DAILY, TAB 01/09/15 Medications Current Medications Sodium Chloride 1,000 ml @ 70 mls/hr [id number] IV Last administered on 02/24/19at 21:46; Admin Dose 70 MLS/HR; Start 02/24/19 at 00:00 IV Flush (NS 3 ml) 3 ml PER PROTOCOL IV ; Start 02/24/19 at 00:00 Ondansetron HCl (Zofran Inj) 4 mg Q6H PRN IV NAUSEA/VOMITING; Start 02/24/19 at 00:00 Acetaminophen (Tylenol Tab) 650 mg Q6H PRN PO .PAIN 1-3 OR TEMP; Start 02/24/19 at 00:00 Hydromorphone HCl (Dilaudid) 0.5 mg Q4H PRN IV .SEVERE PAIN 7-10 Last administered on 02/24/19at 18:02; Admin Dose 0.5 MG; Start 02/24/19 at 00:00 Docusate Sodium (Colace) 100 mg Q12H PRN PO .CONSTIPATION; Start 02/24/19 at 00:00 Bisacodyl (Dulcolax) 5 mg DAILY PRN PO .CONSTIPATION; Start 02/24/19 at 00:00 Aspirin (Aspirin) 81 mg DAILY PO Last administered on 02/24/19at 09:03; Admin Dose 81 MG; Start 02/24/19 at 09:00 Carvedilol (Coreg) 6.25 mg BID PO ; Start 02/24/19 at 09:00 Lisinopril (Zestril) 10 mg DAILY PO ; Start 02/24/19 at 09:00 Tamsulosin HCl (Flomax) 0.4 mg DAILY@2100 PO Last administered on 02/24/19at 21:04; Admin Dose 0.4 MG; Start 02/24/19 at 21:00 Piperacillin Sod/ Tazobactam Sod 100 ml @ 200 mls/hr Q6 IVPB Last administered on 02/24/19at 18:57; Admin Dose 200 MLS/HR; Start 02/24/19 at 08:00 Allergies: Coded Allergies: No Known Allergy (Unverified , 01/09/15) Past Surgical History Uncertain stent PCI Family History Significant Family History: no pertinent family hx Social History Alcohol Use: none Smoking Status: Former smoker Drug Use: none Exam/Review of Systems Exam Vitals Vital Signs Date Temp Pulse Resp B/P (MAP) Pulse Ox O2 O2 Flow FiO2 Time Delivery Rate 02/24/19 67 102/57 21:19 (72) 02/24/19 98.5 18 96 20:00 02/24/19 Room Air 13:50 Intake and Output 02/23/19 02/23/19 02/24/19 1515:00 23:00 07:00 IntakeIntake Total 500 ml 240 ml BalanceBalance 500 ml 240 ml Constitutional: alert, oriented, obese; No distress Psych: nl mood/affect; No anxiety, No confusion Head: normocephalic, atraumatic Eyes: nl conjunctiva, EOMI, PERRL; No icteric ENMT: nl external ears & nose, nl lips & teeth, mucosa pink and moist Neck: supple, non-tender; No jvd Respiratory: normal air movement; No congested cough, No labored breathing Cardiovascular: regular rate and rhythm; No edema Gastrointestinal: soft, tender; No distended, No firm (Minimal), No rebound or guarding Genitourinary - Male: nl penis, nl scrotum Musculoskeletal: nl extremities to inspection, nl gait and stance; No joint tenderness, No swelling Extremities: normal pulses; No calf tenderness, No edema Neurological: nl mental status, nl speech, nl strength Skin: nl turgor; No rash or lesions, No diaphoresis Lymph: nl lymph nodes Results Result Diagram: 02/24/191 02/24/19 0441 Results 24hrs Laboratory Tests Test 02/24/19 04:41 White Blood Count 7.9 Red Blood Count 4.96 Hemoglobin 14.4 Hematocrit 45.9 Mean Corpuscular Volume 92.5 Mean Corpuscular Hemoglobin 29.0 Mean Corpuscular Hemoglobin Concent 31.4 L Red Cell Distribution Width 13.7 Platelet Count 274 Mean Platelet Volume 9.3 Immature Granulocytes % 0.400 Neutrophils % 71.8 Lymphocytes % 16.4 Monocytes % 10.2 Eosinophils % 0.9 Basophils % 0.3 Nucleated Red Blood Cells % 0.0 Immature Granulocytes # 0.030 Neutrophils # 5.7 Lymphocytes # 1.3 Monocytes # 0.8 Eosinophils # 0.1 Basophils # 0.0 Nucleated Red Blood Cells # 0.0 Prothrombin Time 14.7 Prothrombin Time Ratio 1.1 INR International Normalized Ratio 1.14 Activated Partial Thromboplast Time 34.9 Sodium Level 140 Potassium Level 4.1 Chloride Level 104 Carbon Dioxide Level 30 Anion Gap 6 Blood Urea Nitrogen 13 Creatinine 1.41 H Est Glomerular Filtrat Rate mL/min 50 L Glucose Level 112 Hemoglobin A1c 5.4 Calcium Level 8.9 Magnesium Level 2.0 Total Bilirubin 1.3 Direct Bilirubin 0.00 Indirect Bilirubin 1.3 H Aspartate Amino Transf (AST/SGOT) 21 Alanine Aminotransferase (ALT/SGPT) 23 Alkaline Phosphatase 44 Total Protein 7.1 # Albumin 3.6 Globulin 3.50 H Albumin/Globulin Ratio 1.02 Triglycerides Level 147 Cholesterol Level 146 LDL Cholesterol, Calculated 81 HDL Cholesterol 36 Cholesterol/HDL Ratio 4.0 Thyroid Stimulating Hormone (TSH) 1.910 Medications Medication Current Medications Sodium Chloride 1,000 ml @ 70 mls/hr [id number] IV Last administered on 02/24/19at 21:46; Admin Dose 70 MLS/HR; Start 02/24/19 at 00:00 IV Flush (NS 3 ml) 3 ml PER PROTOCOL IV ; Start 02/24/19 at 00:00 Ondansetron HCl (Zofran Inj) 4 mg Q6H PRN IV NAUSEA/VOMITING; Start 02/24/19 at 00:00 Acetaminophen (Tylenol Tab) 650 mg Q6H PRN PO .PAIN 1-3 OR TEMP; Start 02/24/19 at 00:00 Hydromorphone HCl (Dilaudid) 0.5 mg Q4H PRN IV .SEVERE PAIN 7-10 Last administered on 02/24/19at 18:02; Admin Dose 0.5 MG; Start 02/24/19 at 00:00 Docusate Sodium (Colace) 100 mg Q12H PRN PO .CONSTIPATION; Start 02/24/19 at 00:00 Bisacodyl (Dulcolax) 5 mg DAILY PRN PO .CONSTIPATION; Start 02/24/19 at 00:00 Aspirin (Aspirin) 81 mg DAILY PO Last administered on 02/24/19at 09:03; Admin Dose 81 MG; Start 02/24/19 at 09:00 Carvedilol (Coreg) 6.25 mg BID PO ; Start 02/24/19 at 09:00 Lisinopril (Zestril) 10 mg DAILY PO ; Start 02/24/19 at 09:00 Tamsulosin HCl (Flomax) 0.4 mg DAILY@2100 PO Last administered on 02/24/19at 21:04; Admin Dose 0.4 MG; Start 02/24/19 at 21:00 Piperacillin Sod/ Tazobactam Sod 100 ml @ 200 mls/hr Q6 IVPB Last administered on 02/24/19at 18:57; Admin Dose 200 MLS/HR; Start 02/24/19 at 08:00 CAN FINNEGAN MD Feb 24, 2019 23:18
[2019-02-25] VITALS (35 sets, daily range): BP systolic 84–169; BP diastolic 58–75; PULSE 60–84; RESP 13–22
[2019-02-25] MEDS: PIPER-TAZO 3.375 GM IV (PMX) 100 ML IVPB SCH ×4 (00:18→21:05)
[2019-02-25] MEDS: ASPIRIN 81 MG TAB PO SCH ×2 (09:00→09:30)
[2019-02-25] MEDS: LISINOPRIL 10 MG TAB PO SCH (09:00)
--- NOTE | 2019-02-25 10:11 | PN ---
Date/Time of Note Date/Time of Note DATE: 02/25/19 TIME: 10:10 Assessment/Plan VTE Prophylaxis Risk score (from Ns)>0 risk: 3 SCD applied (from Ns): Yes Pharmacological prophylaxis: NA/contraindicated Pharm contraindication: low risk/ambulating Lines/Catheters IV Catheter Type (from Nrsg): Peripheral IV Urinary Cath still in place: No Assessment/Plan Hospital Course SUBJECTIVE: Denies any nausea or vomiting. Continues to have abdominal pain. OBJECTIVE: Physical Exam General: Morbidly obese, 63 year-old male lying in bed in no apparent distress. HEENT: Normocephalic, atraumatic. Eyes: Anicteric sclerae, conjunctivae clear. ENT: Nasal septum midline, oral mucosa moist. Neck supple. Respiratory: Bilaterally clear breath sounds. No use of accessory muscles of respiration. No adventitious breath sounds. Cardiovascular: S1, S2 heard. Regular rate and rhythm. Abdomen: Soft and nondistended. Epigastric tenderness. Bowel sounds positive in all 4 quadrants. Genitourinary: Deferred. Extremities: No cyanosis, no clubbing, no edema. Peripheral pulses palpable. Neurologic: Cranial nerves II through XII grossly intact. The patient is awake, alert, and oriented. Skin: Normal skin turgor. No skin rashes. Labs & Vitals per chart ASSESSMENT & PLAN 63-year-old male with comorbidities including hypertension, dyslipidemia, CAD, and obesity who presented to the emergency room with chief complaint of epigastric abdominal pain with CT evidence of gallbladder hydrops and pericholecystic inflammation concerning for acute cholecystitis, was admitted to inpatient setting for further treatment and evaluation. 1. Symptomatic cholelithiasis. Possible underlying acute cholecystitis. Keep the patient n.p.o. Continue empiric antimicrobials including coverage for anaerobes. Continue pain control. Patient to the OR today. 2. CAD with history of stents. Continue cardiac medications. 3. Acute kidney injury. Possible underlying CKD. Monitor BUN and creatinine closely. Use nephrotoxic drugs with caution. 4. DVT prophylaxis. B/L SCDs. 5. Obesity. BMI: 35 kg/m. Therapeutic lifestyle changes. 6. Plan. Continue pain control. N.p.o. Continue antibiotics. To the OR today. The patient was seen in collaboration with Dr. Lyons. Result Diagram: 02/25/19 0434 02/25/19 043 Results 24hrs Laboratory Tests Test 7/28/19 04:34 White Blood Count 9.8 # Red Blood Count 4.58 L Hemoglobin 13.4 L Hematocrit 41.9 L Mean Corpuscular Volume 91.5 Mean Corpuscular Hemoglobin 29.3 Mean Corpuscular Hemoglobin Concent 32.0 Red Cell Distribution Width 13.4 Platelet Count 236 Mean Platelet Volume 9.3 Immature Granulocytes % 0.300 Neutrophils % 67.9 Lymphocytes % 19.1 Monocytes % 10.7 Eosinophils % 1.5 Basophils % 0.5 Nucleated Red Blood Cells % 0.0 Immature Granulocytes # 0.030 Neutrophils # 6.6 Lymphocytes # 1.9 Monocytes # 1.0 H Eosinophils # 0.2 Basophils # 0.1 Nucleated Red Blood Cells # 0.0 Sodium Level 137 Potassium Level 3.8 Chloride Level 104 Carbon Dioxide Level 26 Anion Gap 7 Blood Urea Nitrogen 15 Creatinine 1.58 H Est Glomerular Filtrat Rate mL/min 44 L Glucose Level 90 Calcium Level 8.1 L Phosphorus Level 3.6 Magnesium Level 1.9 Total Bilirubin 1.6 H Direct Bilirubin 0.00 Indirect Bilirubin 1.6 H Aspartate Amino Transf (AST/SGOT) 25 Alanine Aminotransferase (ALT/SGPT) 27 Alkaline Phosphatase 41 L Total Protein 6.4 Albumin 3.1 L Globulin 3.30 H Albumin/Globulin Ratio 0.93 Exam/Review of Systems Exam Vitals Vital Signs Date Temp Pulse Resp B/P (MAP) Pulse Ox O2 O2 Flow FiO2 Time Delivery Rate 02/25/19 98.5 72 18 104/64 98 Room Air 07:22 (77) Intake and Output 02/24/19 02/24/19 02/25/19 1515:00 23:00 07:00 IntakeIntake Total 100 ml 1440 ml 625 ml BalanceBalance 100 ml 1440 ml 625 ml Results Results 24hrs Laboratory Tests Test 02/25/19 04:34 White Blood Count 9.8 # Red Blood Count 4.58 L Hemoglobin 13.4 L Hematocrit 41.9 L Mean Corpuscular Volume 91.5 Mean Corpuscular Hemoglobin 29.3 Mean Corpuscular Hemoglobin Concent 32.0 Red Cell Distribution Width 13.4 Platelet Count 236 Mean Platelet Volume 9.3 Immature Granulocytes % 0.300 Neutrophils % 67.9 Lymphocytes % 19.1 Monocytes % 10.7 Eosinophils % 1.5 Basophils % 0.5 Nucleated Red Blood Cells % 0.0 Immature Granulocytes # 0.030 Neutrophils # 6.6 Lymphocytes # 1.9 Monocytes # 1.0 H Eosinophils # 0.2 Basophils # 0.1 Nucleated Red Blood Cells # 0.0 Sodium Level 137 Potassium Level 3.8 Chloride Level 104 Carbon Dioxide Level 26 Anion Gap 7 Blood Urea Nitrogen 15 Creatinine 1.58 H Est Glomerular Filtrat Rate mL/min 44 L Glucose Level 90 Calcium Level 8.1 L Phosphorus Level 3.6 Magnesium Level 1.9 Total Bilirubin 1.6 H Direct Bilirubin 0.00 Indirect Bilirubin 1.6 H Aspartate Amino Transf (AST/SGOT) 25 Alanine Aminotransferase (ALT/SGPT) 27 Alkaline Phosphatase 41 L Total Protein 6.4 Albumin 3.1 L Globulin 3.30 H Albumin/Globulin Ratio 0.93 Medications Medication Current Medications Sodium Chloride 1,000 ml @ 70 mls/hr [id number] IV Last administered on 02/24/19at 21:46; Admin Dose 70 MLS/HR; Start 02/24/19 at 00:00 IV Flush (NS 3 ml) 3 ml PER PROTOCOL IV ; Start 02/24/19 at 00:00 Ondansetron HCl (Zofran Inj) 4 mg Q6H PRN IV NAUSEA/VOMITING; Start 02/24/19 at 00:00 Acetaminophen (Tylenol Tab) 650 mg Q6H PRN PO .PAIN 1-3 OR TEMP; Start 02/24/19 at 00:00 Hydromorphone HCl (Dilaudid) 0.5 mg Q4H PRN IV .SEVERE PAIN 7-10 Last administered on 02/24/19at 18:02; Admin Dose 0.5 MG; Start 02/24/19 at 00:00 Docusate Sodium (Colace) 100 mg Q12H PRN PO .CONSTIPATION; Start 02/24/19 at 00:00 Bisacodyl (Dulcolax) 5 mg DAILY PRN PO .CONSTIPATION; Start 02/24/19 at 00:00 Aspirin (Aspirin) 81 mg DAILY PO Last administered on 02/24/19at 09:03; Admin Dose 81 MG; Start 02/24/19 at 09:00 Carvedilol (Coreg) 6.25 mg BID PO ; Start 02/24/19 at 09:00 Lisinopril (Zestril) 10 mg DAILY PO ; Start 02/24/19 at 09:00 Tamsulosin HCl (Flomax) 0.4 mg DAILY@2100 PO Last administered on 02/24/19at 21:04; Admin Dose 0.4 MG; Start 02/24/19 at 21:00 Piperacillin Sod/ Tazobactam Sod 100 ml @ 200 mls/hr Q6 IVPB Last administered on 02/25/19at 05:54; Admin Dose 200 MLS/HR; Start 02/24/19 at 08:00 GWEN CIU NP Feb 25, 2019 10:11
[2019-02-25] MEDS ORDERED: LIDOCAINE 1% (MPF) 30 ML INJ ONE (11:09)
[2019-02-25] MEDS ORDERED: BUPIVACAINE 0.25%/EPI (SDV) 30 ML INJ ONE (11:09)
--- NOTE | 2019-02-25 11:17 | PN ---
Date/Time of Note Date/Time of Note DATE: 02/25/19 TIME: 11:15 Assessment/Plan Lines/Catheters IV Catheter Type (from [facility]): Peripheral IV Kelly in Place (from [facility]): No Assessment/Plan Chief Complaint/Hosp Course 1. Abdominal pain 2. Cholelithiasis 3. Possible cholecystitis. Positive HIDA -Pain control -N.p.o. -IV fluids -OR for cholecystectomy 4. BMI 36 with morbid obesity -Diet and medication optimization -Encourage weight loss 5. Hypertension -Diet and medication optimization -Encourage weight loss 6. Dyslipidemia -Diet and medication optimization -Encourage weight loss 7. Coronary artery disease, history of [place], atherosclerosis -Cardiac and medical optimization 8. Renal calculus -Encourage judicious fluid consumption -Outpatient urology follow-up Thank you, Subjective 24 Hr Interval Summary Abdominal pain persist. No nausea vomiting. No fevers or chills. No cough. No seizure. No blood per mouth or rectum. No dysuria. HIDA scan positive. Labs noted. Patient eager for surgery Exam/Review of Systems Vital Signs Vitals Vital Signs Date Temp Pulse Resp B/P (MAP) Pulse Ox O2 O2 Flow FiO2 Time Delivery Rate 02/25/19 98.5 72 18 104/64 98 Room Air 07:22 (77) Intake and Output 02/24/19 02/24/19 02/25/19 1515:00 23:00 07:00 IntakeIntake Total 100 ml 1440 ml 625 ml BalanceBalance 100 ml 1440 ml 625 ml Exam Free Text/Dictation Constitutional: alert, oriented, obese; No distress Psych: nl mood/affect; No anxiety, No confusion Head: normocephalic, atraumatic Eyes: nl conjunctiva, EOMI, PERRL; No icteric ENMT: nl external ears & nose, nl lips & teeth, mucosa pink and moist Neck: supple, non-tender; No jvd Respiratory: normal air movement; No congested cough, No labored breathing Cardiovascular: regular rate and rhythm; No edema Gastrointestinal: soft, tender; No distended, No firm (Minimal), No rebound or guarding Genitourinary - Male: nl penis, nl scrotum Musculoskeletal: nl extremities to inspection, nl gait and stance; No joint tenderness, No swelling Extremities: normal pulses; No calf tenderness, No edema Neurological: nl mental status, nl speech, nl strength Skin: nl turgor; No rash or lesions, No diaphoresis Lymph: nl lymph nodes Results Result Diagram: 02/25/19 0434 02/25/19 0434 CAN FINNEGAN MD Feb 25, 2019 11:17
[2019-02-25] MEDS ORDERED: LACTATED RINGER'S 1,000 ML IV SCH (12:13)
--- NOTE | 2019-02-25 12:13 | PREAC ---
Date/Time of Note Date/Time of Note DATE: 02/25/19 TIME: 12:09 Anesthesia Eval and Record Evaluation Time Pre-Procedure Interview DATE: 02/25/19 TIME: 12:00 Age 63 Sex male NPO: 8 hrs Preoperative diagnosis h/o mi, ashd, htn, transaminitis, cholelithiasis/cholecystitis Planned procedure lap. criselda./poss open Past Medical History Past Medical History: Includes Cardio: HTN, [place], CAD GI: Other (choolecystitis/cholelithiasis) Surgery & Anesthesia Issues No known issue Meds Anticoagulation: No Beta [place] within 24 hr: Yes Reason Beta [place] not given: Other (given in or) Active Scripts Nitrofurantoin Monohyd Macrocr* (Macrobid*) 100 Mg Capsr, 100 MG PO BID for 14 Days, CAP Prov:JOHNNY DURAND 01/09/15 Ketorolac Tromethamine* (Toradol*) 15 Mg/Ml Soln, 15 MG IV Q6H PRN for PAIN, #20 VIAL Prov:JOHNNY DURAND 01/09/15 Tamsulosin Hcl* (Flomax*) 0.4 Mg Cap.er.24h, 0.4 MG PO DAILY for 30 Days, CAP Prov:JOHNNY DURAND 01/09/15 Hydrocodone Bit-Acetaminophen* ([place]*) 10-325 Mg Tablet, 1 TAB PO Q6 PRN for PAIN, #10 TAB Prov:JOHNNY DURAND 01/09/15 Reported Medications Carvedilol* (Carvedilol*) 6.25 Mg Tablet, 6.25 MG PO BID, TAB 01/09/15 Simvastatin (Simvastatin) 40 Mg Tablet, 40 MG PO HS, TAB 01/09/15 Aspirin* (Aspirin* Chew) 81 Mg Tab.chew, 81 MG PO DAILY, TAB.CHEW 01/09/15 Lisinopril* (Lisinopril*) 10 Mg Tablet, 10 MG PO DAILY, TAB 01/09/15 Current Medications Sodium Chloride 1,000 ml @ 70 mls/hr [id number] IV Last administered on 02/24/19at 21:46; Admin Dose 70 MLS/HR; Start 02/24/19 at 00:00 IV Flush (NS 3 ml) 3 ml PER PROTOCOL IV ; Start 02/24/19 at 00:00 Ondansetron HCl (Zofran Inj) 4 mg Q6H PRN IV NAUSEA/VOMITING; Start 02/24/19 at 00:00 Acetaminophen (Tylenol Tab) 650 mg Q6H PRN PO .PAIN 1-3 OR TEMP; Start 02/24/19 at 00:00 Hydromorphone HCl (Dilaudid) 0.5 mg Q4H PRN IV .SEVERE PAIN 7-10 Last administered on 02/24/19at 18:02; Admin Dose 0.5 MG; Start 02/24/19 at 00:00 Docusate Sodium (Colace) 100 mg Q12H PRN PO .CONSTIPATION; Start 02/24/19 at 00:00 Bisacodyl (Dulcolax) 5 mg DAILY PRN PO .CONSTIPATION; Start 02/24/19 at 00:00 Aspirin (Aspirin) 81 mg DAILY PO Last administered on 02/24/19at 09:03; Admin Dose 81 MG; Start 02/24/19 at 09:00 Carvedilol (Coreg) 6.25 mg BID PO ; Start 02/24/19 at 09:00 Lisinopril (Zestril) 10 mg DAILY PO ; Start 02/24/19 at 09:00 Tamsulosin HCl (Flomax) 0.4 mg DAILY@2100 PO Last administered on 02/24/19at 21:04; Admin Dose 0.4 MG; Start 02/24/19 at 21:00 Piperacillin Sod/ Tazobactam Sod 100 ml @ 200 mls/hr Q6 IVPB Last administered on 02/25/19at 05:54; Admin Dose 200 MLS/HR; Start 02/24/19 at 08:00 Meds reviewed: Yes Allergies Coded Allergies: No Known Allergy (Unverified , 01/09/15) Allergies Reviewed: Yes Labs/Studies Labs Reviewed: Reviewed by anesthesiologist Result Diagram: 02/25/19 0434 02/25/19 0434 Laboratory Tests 02/25/19 04:34 test: N/A Studies: ECG (nsr), CXR (nad) Pre-procedure Exam Last vitals Vital Signs Date Temp Pulse Resp B/P (MAP) Pulse Ox O2 O2 Flow FiO2 Time Delivery Rate 02/25/19 98.5 72 18 104/64 98 Room Air 07:22 (77) Airway: Adequate mouth opening, Adequate thyromental dist Mallampati: Mallampati II Teeth: Normal Lung: Normal Heart: Normal ASA Physical Status ASA physical status: 3 Emergency: E Planned Anesthetic General/MAC: ETT Nerve block: TAP (bilateral), Other (tap rossy. if open criselda.) Planned Pain Management Single shot nerve block, Parenteral pain med, Local by surgeon Pre-operative Attestations Prior to commencing anesthesia and surgery, the patient was re-evaluated, there was verification of: *The patient's identity *The results of appropriate recent lab work and preoperative vital signs *The above evaluation not changing prior to induction *Anesthetic plan, risk benefits, alternative and complications discussed with patient/family; questions answered; patient/family understands, accepts and wishes to proceed. Fruit Or Nut Picker used JOHANNA GRISSOM MD Feb 25, 2019 12:13
[2019-02-25] MEDS ORDERED: LIDOCAINE 2% (SDV) 5 ML INJ ONE (12:26)
[2019-02-25] MEDS ORDERED: FENTAnyl 50 MCG/ML VIAL ONE (12:26)
[2019-02-25] MEDS ORDERED: ROCURONIUM 50 MG INJ ONE (12:26)
[2019-02-25] MEDS ORDERED: PROPOFOL 200 MG INJ ONE (12:26)
[2019-02-25] MEDS ORDERED: CEFAZOLIN 1 GM INJ ONE (12:26)
[2019-02-25] MEDS ORDERED: MIDAZOLAM 1 MG/ML 2 ML INJ ONE (12:26)
[2019-02-25] MEDS ORDERED: SEVOFLURANE 15 MIN ONE (12:26)
[2019-02-25] MEDS ORDERED: OXYCODONE/ACETAMINOPHEN (5/325) TAB PO PRN ×2 (12:30)
[2019-02-25] MEDS ORDERED: KETOROLAC 60 MG INJ IM PRN (12:30)
[2019-02-25] MEDS ORDERED: ONDANSETRON 4 MG INJ IV PRN (12:30)
[2019-02-25] MEDS ORDERED: KETOROLAC 30 MG INJ IV PRN (12:30)
[2019-02-25] MEDS ORDERED: KETOROLAC 15 MG INJ IV PRN (12:30)
[2019-02-25] MEDS ORDERED: DIPHENHYDRAMINE 50 MG INJ IV PRN (12:30)
[2019-02-25] MEDS ORDERED: MIDAZOLAM 1 MG/ML 2 ML INJ IV PRN (12:30)
[2019-02-25] MEDS ORDERED: MEPERIDINE 25 MG INJ IV PRN (12:30)
[2019-02-25] MEDS ORDERED: LABETALOL HCL 20MG INJ IV PRN (12:30)
[2019-02-25] MEDS ORDERED: HYDROmorphONE 1 MG/5 ML IV SYRINGE IV PRN ×3 (12:30)
[2019-02-25] MEDS ORDERED: ONDANSETRON 4 MG INJ ONE (13:02)
[2019-02-25] MEDS ORDERED: IOHEXOL 300MG/ML 30 ML BTL ONE (13:09)
[2019-02-25] MEDS ORDERED: GLYCOPYRROLATE 0.4 MG INJ ONE (13:45)
[2019-02-25] MEDS ORDERED: NEOSTIGMINE 3 MG/3 ML SYRINGE ONE (13:45)
[2019-02-25] MEDS ORDERED: KETOROLAC 30 MG INJ ONE (13:47)
[2019-02-25] MEDS ORDERED: METOPROLOL 5 MG INJ ONE (13:57)
--- NOTE | 2019-02-25 14:05 | OPR ---
Date/Time of Note Date/Time of Note DATE: 02/25/19 TIME: 13:56 Operative Report Free Text/Dictation Preoperative Diagnosis: Symptomatic cholelithiasis and probable cholecystitis BMI 36 Postoperative Diagnosis: Symptomatic cholelithiasis Acute significant cholecystitis Abnormal liver color BMI 36 Difficult operation Operation(s) Performed: 1. Laparoscopic cholecystectomy 2. Laparoscopic liver wedge resection biopsy 3. Indigocarmine green fluorescence cholangiography 4. Intraoperative cholangiography 5. Local anesthetic [place], [id number] 6. Laparoscopic guided bilateral transversus abdominis plane block 7. Difficult operation, modifier 22 Surgeon: Can Finnegan MD Urology Physician: Jermaine White MD Anesthesia: general, local, & regional Anesthesiologist: Cuate Ching MD Estimated Blood Loss: 50 ml's Specimens: Gallbladder Liver Tubes/Drains: 19F Chucho Complications: None Pt Condition Post Procedure: stable Disposition: PACU Indications: 63-year-old male with gallstones and abdominal pain here for cholecystectomy. He probably has cholecystitis. Risks include but are not limited to bleeding, infection, abscess, seroma, damage to intestines, damage to the liver, damage to biliary tree, hernia formation, chronic pain, biloma, need for reoperations or further surgeries, OR, stroke, PE, DVT, pneumonia, organ failures, or even . Procedure Description: Patient was brought and placed supine on the operating table SCDs were placed, preoperative antibiotics were administered, all pressure points were well- padded, and after induction of anesthesia patient was prepped and draped in usual sterile fashion and timeout was performed. Incision was made in the right upper quadrant and using an Optiview port and a 5 mm 0 scope abdomen was entered and insufflated to 15 mmHg with CO2. Laparoscopy was performed with a 5 mm 30 scope. No injuries were identified. The liver looks somewhat abnormal color. The gallbladder is distended and thickened with significant evidence of inflammation and infection. 12 mm port is placed in subxiphoid under direct v isualization followed by another 5 mm port in the right upper quadrant. All port sites were injected with quarter percent Marcaine with epi and 1% lidocaine prior to any incisions. Bilateral transversus abdominis plane block was performed under laparoscopic visualization to aid with pain control intra-and postoperatively. Patient was placed in reverse Trendelenburg and right side up on gallbladder was retracted superolaterally. The gallbladder was large and distended. Using electrocautery and blunt dissection I was able to identify the cystic artery and cystic duct. The duct was dilated but tapered into the gallbladder. Full cr itical angle view was identified. At this time ICG fluorescence cholangiography was performed however we were not able to visualize the biliary structures appropriately. Since visualization was not adequate with fluorescence cholangiography, intraope rative cholangiography was performed by creating a cystotomy in the cystic duct and performing a cholangiogram. Contrast filled up, and bile duct and how common hepatic duct and in the left and right hepatic ducts which were confirmed with radiologist. Bowel also lights up. No obstruction or filling defect is seen. At this point catheter is removed. Both structures were clipped twice proximally and once distally and transected. The gallbladder was taken off the liver with electrocautery. There was oozing from the raw surfaces. Hemostasis was obtained. Gallbladder was placed in an Endo Catch bag and removed through the subxiphoid port site. There was complete hemostasis. The procedure was difficult throughout due to the size of the patient and the amount of inflammation present. Due to the abnormality of the liver decision was made to perform liver wedge resection which was done with electrocautery and scissor with complete hemostasis right after. The specimen was sent to pathology for further evaluat ion. 19F chucho drain was placed through lateral incision to drain the liver and gallbladder sites. 12 mm made port site fascia was closed with Endo Close of an 0 Vicryl in a [id number] manner. Ports and CO2 were removed under direct visualization. N ext complete hemostasis. Wounds were thoroughly irrigated skin was closed with 4-0 Monocryl in subcuticular fashion. Dermabond was applied. Patient was extubated and transferred to recovery room in stable condition and all counts were correct and the end of the operation 2. CAN FINNEGAN MD Feb 25, 2019 14:04
--- NOTE | 2019-02-25 14:17 | PAC ---
Date/Time of Note Date/Time of Note DATE: 02/25/19 TIME: 14:17 Post-Anesthesia Notes Post-Anesthesia Note Last documented vital signs Vital Signs Date Temp Pulse Resp B/P (MAP) Pulse Ox O2 O2 Flow FiO2 Time Delivery Rate 02/25/19 99.1 14:06 02/25/19 72 18 104/64 98 Room Air 07:22 (77) Activity: WNL Respiratory function: WNL Cardiovascular function: WNL Mental status: Baseline Pain reasonably controlled: Yes Hydration appropriate: Yes Nausea/Vomiting absent: Yes JOHANNA GRISSOM MD Feb 25, 2019 14:17
[2019-02-25] MEDS ORDERED: EPHEDrine 25 MG/5 ML SYG ONE (14:58)
[2019-02-25] MEDS ORDERED: EPHEDrine 25 MG/5 ML SYG IV PRN (15:00)
[2019-02-25] MEDS: TAMSULOSIN (SR) 0.4 MG CAP PO SCH (21:05)
[2019-02-25] MEDS: SOD CHLORIDE 0.9% 1,000 ML IV SCH (21:07)
[2019-02-26] MEDS: PIPER-TAZO 3.375 GM IV (PMX) 100 ML IVPB SCH ×4 (01:58→18:14)
[2019-02-26 02:14] VITALS: BP 115/74; PULSE 72; RESP 18
[2019-02-26] MEDS: HYDROmorphONE 0.5 MG/0.5 ML SYG IV PRN ×3 (05:21→23:13)
[2019-02-26 07:16] VITALS: BP 97/71; PULSE 77; RESP 18
[2019-02-26] MEDS: ASPIRIN 81 MG TAB PO SCH (07:54)
[2019-02-26] MEDS: LISINOPRIL 10 MG TAB PO SCH (08:03)
[2019-02-26] MEDS: SOD CHLORIDE 0.9% 1,000 ML IV SCH ×3 (08:04→23:30)
--- NOTE | 2019-02-26 12:52 | PN ---
Date/Time of Note Date/Time of Note DATE: 02/26/19 TIME: 11:09 Assessment/Plan VTE Prophylaxis Risk score (from Ns)>0 risk: 5 SCD applied (from Nsg): Yes Pharmacological prophylaxis: heparin Lines/Catheters IV Catheter Type (from Nrsg): Peripheral IV Urinary Cath still in place: No Assessment/Plan Hospital Course Assessment and plan #Cholecystitis (partially gangrenous) Patient status post laparoscopic cholecystectomy with liver wedge resection/intraoperative cholangiography. Continue with antibiotics. Follow-up with surgeon. Monitor for signs of infection Advance diet as tolerated Continue analgesics #CAD with stent Continue cardiovascular medication #Acute kidney injury Improving Monitor renal panel #Obesity Weight reduction was advised Disposition plan. Continue with analgesics. Continue with diet. Follow-up with surgeon. Continue antibiotics. Discussed POC with Dr. Lyons Result Diagram: 02/26/19 0505 02/26/19 0505 Results 24hrs Laboratory Tests Test 02/26/19 05:05 White Blood Count 7.2 # Red Blood Count 4.38 L Hemoglobin 12.7 L Hematocrit 40.5 L Mean Corpuscular Volume 92.5 Mean Corpuscular Hemoglobin 29.0 Mean Corpuscular Hemoglobin Concent 31.4 L Red Cell Distribution Width 13.4 Platelet Count 206 Mean Platelet Volume 9.4 Immature Granulocytes % 0.400 Neutrophils % 63.8 Lymphocytes % 22.9 Monocytes % 9.7 Eosinophils % 2.9 Basophils % 0.3 Nucleated Red Blood Cells % 0.0 Immature Granulocytes # 0.030 Neutrophils # 4.6 Lymphocytes # 1.7 Monocytes # 0.7 Eosinophils # 0.2 Basophils # 0.0 Nucleated Red Blood Cells # 0.0 Sodium Level 138 Potassium Level 4.0 Chloride Level 107 Carbon Dioxide Level 25 Anion Gap 6 Blood Urea Nitrogen 14 Creatinine 1.31 H Est Glomerular Filtrat Rate mL/min 55 L Glucose Level 105 Calcium Level 7.9 L Phosphorus Level 3.6 Magnesium Level 2.1 Total Bilirubin 0.8 Direct Bilirubin 0.00 Indirect Bilirubin 0.8 Aspartate Amino Transf (AST/SGOT) 51 #H Alanine Aminotransferase (ALT/SGPT) 41 Alkaline Phosphatase 44 Total Protein 6.0 L Albumin 2.9 L Globulin 3.10 Albumin/Globulin Ratio 0.93 Subjective 24 Hr Interval Summary Free Text/Dictation patient reports having pain with getting up in bed. reports abd soreness after surgery Exam/Review of Systems Exam Vitals Vital Signs Date Temp Pulse Resp B/P (MAP) Pulse Ox O2 O2 Flow FiO2 Time Delivery Rate 02/26/19 98.0 77 18 97/71 (80) 96 Room Air 07:16 02/26/19 02:14 Intake and Output 02/25/19 02/25/19 02/26/19 1414:59 22:59 06:59 IntakeIntake Total 2240 ml 635 ml 625 ml OutputOutput Total 60 ml 40 ml 50 ml BalanceBalance 2180 ml 595 ml 575 ml Constitutional: alert, oriented, obese Head: normocephalic Neck: supple, non-tender Respiratory: clear to auscultation Cardiovascular: other (regular rate ) Gastrointestinal: soft, tender, other (GABO drain) Musculoskeletal: No swelling Neurological: OYSTER FISHERMAN II-XII intact, nl speech Results Results 24hrs Laboratory Tests Test 02/26/19 05:05 White Blood Count 7.2 # Red Blood Count 4.38 L Hemoglobin 12.7 L Hematocrit 40.5 L Mean Corpuscular Volume 92.5 Mean Corpuscular Hemoglobin 29.0 Mean Corpuscular Hemoglobin Concent 31.4 L Red Cell Distribution Width 13.4 Platelet Count 206 Mean Platelet Volume 9.4 Immature Granulocytes % 0.400 Neutrophils % 63.8 Lymphocytes % 22.9 Monocytes % 9.7 Eosinophils % 2.9 Basophils % 0.3 Nucleated Red Blood Cells % 0.0 Immature Granulocytes # 0.030 Neutrophils # 4.6 Lymphocytes # 1.7 Monocytes # 0.7 Eosinophils # 0.2 Basophils # 0.0 Nucleated Red Blood Cells # 0.0 Sodium Level 138 Potassium Level 4.0 Chloride Level 107 Carbon Dioxide Level 25 Anion Gap 6 Blood Urea Nitrogen 14 Creatinine 1.31 H Est Glomerular Filtrat Rate mL/min 55 L Glucose Level 105 Calcium Level 7.9 L Phosphorus Level 3.6 Magnesium Level 2.1 Total Bilirubin 0.8 Direct Bilirubin 0.00 Indirect Bilirubin 0.8 Aspartate Amino Transf (AST/SGOT) 51 #H Alanine Aminotransferase (ALT/SGPT) 41 Alkaline Phosphatase 44 Total Protein 6.0 L Albumin 2.9 L Globulin 3.10 Albumin/Globulin Ratio 0.93 Medications Medication Current Medications Sodium Chloride 1,000 ml @ 70 mls/hr [id number] IV Last administered on 02/25/19at 21:07; Admin Dose 70 MLS/HR; Start 02/24/19 at 00:00 IV Flush (NS 3 ml) 3 ml PER PROTOCOL IV ; Start 02/24/19 at 00:00 Ondansetron HCl (Zofran Inj) 4 mg Q6H PRN IV NAUSEA/VOMITING; Start 02/24/19 at 00:00 Acetaminophen (Tylenol Tab) 650 mg Q6H PRN PO .PAIN 1-3 OR TEMP; Start 02/24/19 at 00:00 Hydromorphone HCl (Dilaudid) 0.5 mg Q4H PRN IV .SEVERE PAIN 7-10 Last administered on 02/26/19at 05:21; Admin Dose 0.5 MG; Start 02/24/19 at 00:00 Docusate Sodium (Colace) 100 mg Q12H PRN PO .CONSTIPATION; Start 02/24/19 at 00:00 Bisacodyl (Dulcolax) 5 mg DAILY PRN PO .CONSTIPATION; Start 02/24/19 at 00:00 Aspirin (Aspirin) 81 mg DAILY PO Last administered on 02/26/19at 07:54; Admin Dose 81 MG; Start 02/24/19 at 09:00 Carvedilol (Coreg) 6.25 mg BID PO ; Start 02/24/19 at 09:00 Lisinopril (Zestril) 10 mg DAILY PO ; Start 02/24/19 at 09:00 Tamsulosin HCl (Flomax) 0.4 mg DAILY@2100 PO Last administered on 02/25/19at 21:05; Admin Dose 0.4 MG; Start 02/24/19 at 21:00 Piperacillin Sod/ Tazobactam Sod 100 ml @ 200 mls/hr Q6 IVPB Last administered on 02/26/19at 07:54; Admin Dose 200 MLS/HR; Start 02/24/19 at 08:00 DAVID ESPINAL NP Feb 26, 2019 12:52
[2019-02-26] MEDS ORDERED: HYDROCODONE/APAP (5/325) TAB PO PRN (13:30)
[2019-02-26 14:25] VITALS: BP 113/81; PULSE 75; RESP 18
[2019-02-26] MEDS: TAMSULOSIN (SR) 0.4 MG CAP PO SCH (20:55)
[2019-02-26] MEDS: HEPARIN 5,000 UNIT/1 ML VIAL SC SCH (21:03)
[2019-02-26 21:22] VITALS: BP 115/74; PULSE 80; RESP 18
--- NOTE | 2019-02-26 23:31 | PN ---
Date/Time of Note Date/Time of Note DATE: 02/26/19 TIME: 23:25 Assessment/Plan Lines/Catheters IV Catheter Type (from Nrs): Peripheral IV Kelly in Place (from Nrs): No Assessment/Plan Chief Complaint/Hosp Course 1. Abdominal pain, Cholelithiasis, cholecystitis (Positive HIDA) s/p lap criselda -Pain control -IV fluids -D/C planning 2. BMI 36 with morbid obesity -Diet and medication optimization -Encourage weight loss 3. Hypertension -Diet and medication optimization -Encourage weight loss 4. Dyslipidemia -Diet and medication optimization -Encourage weight loss 5. Coronary artery disease, history of [place], atherosclerosis -Cardiac and medical optimization 6. Renal calculus -Encourage judicious fluid consumption -Outpatient urology follow-up Thank you, Subjective 24 Hr Interval Summary s/p Lap criselda for cholecystitis 02/25. Abdominal pain improving. No nausea, vomiting. No fevers or chills. No cough. No seizure. No blood per mouth or rectum. No dysuria. No bowel function. Exam/Review of Systems Vital Signs Vitals Vital Signs Date Temp Pulse Resp B/P (MAP) Pulse Ox O2 O2 Flow FiO2 Time Delivery Rate 02/26/19 98.3 80 18 115/74 93 Room Air 21:22 (88) 02/26/19 02:14 Intake and Output 02/25/19 02/25/19 02/26/19 1515:00 23:00 07:00 IntakeIntake Total 2140 ml 635 ml 625 ml OutputOutput Total 60 ml 40 ml 50 ml BalanceBalance 2080 ml 595 ml 575 ml Exam Free Text/Dictation Constitutional: alert, oriented, obese; No distress Psych: nl mood/affect; No anxiety, No confusion Head: normocephalic, atraumatic Eyes: nl conjunctiva, EOMI, PERRL; No icteric ENMT: nl external ears & nose, nl lips & teeth, mucosa pink and moist Neck: supple, non-tender; No jvd Respiratory: normal air movement; No congested cough, No labored breathing Cardiovascular: regular rate and rhythm; No edema Gastrointestinal: soft, min tender; erin serosang No distended, No firm, No rebound or guarding Genitourinary - Male: nl penis, nl scrotum Musculoskeletal: nl extremities to inspection, nl gait and stance; No joint tenderness, No swelling Extremities: normal pulses; No calf tenderness, No edema Neurological: nl mental status, nl speech, nl strength Skin: nl turgor; No rash or lesions, No diaphoresis Lymph: nl lymph nodes Results Result Diagram: 02/26/19 0505 02/26/19 0505 CAN FINNEGAN MD Feb 26, 2019 23:31
[2019-02-27] MEDS: SOD CHLORIDE 0.9% 1,000 ML IV SCH ×3 (00:30→13:47)
[2019-02-27] MEDS: PIPER-TAZO 3.375 GM IV (PMX) 100 ML IVPB SCH ×5 (01:31→23:50)
[2019-02-27 02:42] VITALS: BP 118/77; PULSE 72; RESP 18
[2019-02-27 08:10] VITALS: BP 134/80; PULSE 77; RESP 18
[2019-02-27] MEDS: LISINOPRIL 10 MG TAB PO SCH (09:19)
[2019-02-27] MEDS: ASPIRIN 81 MG TAB PO SCH (09:19)
[2019-02-27] MEDS: HEPARIN 5,000 UNIT/1 ML VIAL SC SCH ×2 (09:21→20:50)
--- NOTE | 2019-02-27 12:04 | PDOCDIS ---
Discharge Instructions DIAGNOSIS Discharge Diagnosis #Cholecystitis #CAD with stent #Acute kidney injury #Obesity CONDITION [id number] Patient Condition: [id number] Stable HOME CARE INSTRUCTIONS: [id number] Diet Instructions: [id number] Low Fat /Cholesterol FOLLOW UP/APPOINTMENTS Follow-up Plan Follow up with Dr. Martinez Peacock in one week Office Address [id number] [address] Office Follow up with your primary care provider in one week DAVID ESPINAL NP Feb 27, 2019 12:04
[2019-02-27] MEDS: HYDROmorphONE 0.5 MG/0.5 ML SYG IV PRN ×2 (12:13→19:38)
--- NOTE | 2019-02-27 13:46 | PN ---
Date/Time of Note Date/Time of Note DATE: 02/27/19 TIME: 13:44 Assessment/Plan Lines/Catheters IV Catheter Type (from Nrsg): Peripheral IV Kelly in Place (from Nrs): No Assessment/Plan Chief Complaint/Hosp Course 1. Abdominal pain, Cholelithiasis, cholecystitis (Positive HIDA) s/p lap criselda -Pain control -diet as tolerated -D/C ok from surgical standpoint w for drain care. F/u in office in 1 week. 2. BMI 36 with morbid obesity -Diet and medication optimization -Encourage weight loss 3. Hypertension -Diet and medication optimization -Encourage weight loss 4. Dyslipidemia -Diet and medication optimization -Encourage weight loss 5. Coronary artery disease, history of [place], atherosclerosis -Cardiac and medical optimization 6. Renal calculus -Encourage judicious fluid consumption -Outpatient urology follow-up Thank you. Patient seen and examined in collaboration with Dr. Martinez Peacock. Subjective 24 Hr Interval Summary Feels ok. Continues to have some abdominal discomfort. No fevers, chills, sob, congested cough, cp, palpitations, snider, dizziness, n/v/d/dysuria. Exam/Review of Systems Vital Signs Vitals Vital Signs Date Temp Pulse Resp B/P (MAP) Pulse Ox O2 O2 Flow FiO2 Time Delivery Rate 02/27/19 98.5 77 18 134/80 98 08:10 (98) 02/27/19 Room Air 02:42 02/26/19 02:14 Intake and Output 02/26/19 02/26/19 02/27/19 1515:00 23:00 07:00 IntakeIntake Total 915 ml 570 ml 870 ml OutputOutput Total 25 ml 55 ml 40 ml BalanceBalance 890 ml 515 ml 830 ml Exam Free Text/Dictation Constitutional: alert, oriented, obese; No distress Psych: nl mood/affect; No anxiety, No confusion Head: normocephalic, atraumatic Eyes: nl conjunctiva, EOMI, PERRL; No icteric ENMT: nl external ears & nose, nl lips & teeth, mucosa pink and moist Neck: supple, non-tender; No jvd Respiratory: normal air movement; No congested cough, No labored breathing Cardiovascular: regular rate and rhythm; No edema Gastrointestinal: soft, min tender; erin serosang, min distended No firm, No rebound or guarding Genitourinary - Male: nl penis, nl scrotum Musculoskeletal: nl extremities to inspection, nl gait and stance; No joint tenderness, No swelling Extremities: normal pulses; No calf tenderness, No edema Neurological: nl mental status, nl speech, nl strength Skin: nl turgor; No rash or lesions, No diaphoresis Lymph: nl lymph nodes Results Result Diagram: 02/27/19 0537 02/27/19 0537 KERRIE HANSEN NP Feb 27, 2019 13:46
[2019-02-27 15:09] VITALS: BP 124/73; PULSE 82; RESP 18
--- NOTE | 2019-02-27 15:17 | PN ---
Date/Time of Note Date/Time of Note DATE: 02/27/19 TIME: 15:15 Assessment/Plan VTE Prophylaxis Risk score (from Nsg)>0 risk: 2 SCD applied (from Nsg): Yes Pharmacological prophylaxis: heparin Lines/Catheters IV Catheter Type (from Nrsg): Peripheral IV Urinary Cath still in place: No Assessment/Plan Hospital Course Assessment and plan #Cholecystitis (partially gangrenous) Patient status post laparoscopic cholecystectomy with liver wedge resection/intraoperative cholangiography. Continue with antibiotics. Monitor for signs of infection Advance diet as tolerated Continue analgesics #CAD with stent Continue cardiovascular medication #Acute kidney injury Improving Monitor renal panel #Obesity Weight reduction was advised Disposition plan. Advance diet to low fat/low cholesterol. counselled patient on weight reduction . still with pain and difficulty with ambulation because of pain. analgesics adjusted. anticipate d/c within the next 24 hours if improved. Discussed POC with Dr. Zarate Result Diagram: 02/27/19 0537 02/27/19 0537 Results 24hrs Laboratory Tests Test 02/27/19 05:37 White Blood Count 7.4 Red Blood Count 4.50 L Hemoglobin 13.1 L Hematocrit 41.1 L Mean Corpuscular Volume 91.3 Mean Corpuscular Hemoglobin 29.1 Mean Corpuscular Hemoglobin Concent 31.9 L Red Cell Distribution Width 13.3 Platelet Count 251 # Mean Platelet Volume 9.6 Immature Granulocytes % 0.400 Neutrophils % 64.7 Lymphocytes % 22.3 Monocytes % 9.5 Eosinophils % 2.8 Basophils % 0.3 Nucleated Red Blood Cells % 0.0 Immature Granulocytes # 0.030 Neutrophils # 4.8 Lymphocytes # 1.7 Monocytes # 0.7 Eosinophils # 0.2 Basophils # 0.0 Nucleated Red Blood Cells # 0.0 Sodium Level 137 Potassium Level 3.9 Chloride Level 105 Carbon Dioxide Level 26 Anion Gap 6 Blood Urea Nitrogen 11 Creatinine 1.28 H Est Glomerular Filtrat Rate mL/min 56 L Glucose Level 88 Calcium Level 8.2 L Phosphorus Level 3.0 Magnesium Level 2.1 Total Bilirubin 0.9 Direct Bilirubin 0.00 Indirect Bilirubin 0.9 Aspartate Amino Transf (AST/SGOT) 33 Alanine Aminotransferase (ALT/SGPT) 37 Alkaline Phosphatase 40 L Total Protein 6.2 Albumin 2.9 L Globulin 3.30 H Albumin/Globulin Ratio 0.87 Subjective 24 Hr Interval Summary Free Text/Dictation still reports moderate abd pain more notable with ambulation Exam/Review of Systems Exam Vitals Vital Signs Date Temp Pulse Resp B/P (MAP) Pulse Ox O2 O2 Flow FiO2 Time Delivery Rate 02/27/19 98.2 82 18 124/73 98 15:09 (90) 02/27/19 Room Air 02:42 02/26/19 02:14 Intake and Output 02/26/19 02/26/19 02/27/19 1515:00 23:00 07:00 IntakeIntake Total 915 ml 570 ml 870 ml OutputOutput Total 25 ml 55 ml 40 ml BalanceBalance 890 ml 515 ml 830 ml Exam Constitutional: alert, oriented, obese Head: normocephalic Neck: supple, non-tender Respiratory: clear to auscultation Cardiovascular: other (regular rate ) Gastrointestinal: soft, tender, other (GABO drain) Musculoskeletal: No swelling Neurological: RESIDENTIAL BUILDER II-XII intact, nl speech Results Results 24hrs Laboratory Tests Test 02/27/19 05:37 White Blood Count 7.4 Red Blood Count 4.50 L Hemoglobin 13.1 L Hematocrit 41.1 L Mean Corpuscular Volume 91.3 Mean Corpuscular Hemoglobin 29.1 Mean Corpuscular Hemoglobin Concent 31.9 L Red Cell Distribution Width 13.3 Platelet Count 251 # Mean Platelet Volume 9.6 Immature Granulocytes % 0.400 Neutrophils % 64.7 Lymphocytes % 22.3 Monocytes % 9.5 Eosinophils % 2.8 Basophils % 0.3 Nucleated Red Blood Cells % 0.0 Immature Granulocytes # 0.030 Neutrophils # 4.8 Lymphocytes # 1.7 Monocytes # 0.7 Eosinophils # 0.2 Basophils # 0.0 Nucleated Red Blood Cells # 0.0 Sodium Level 137 Potassium Level 3.9 Chloride Level 105 Carbon Dioxide Level 26 Anion Gap 6 Blood Urea Nitrogen 11 Creatinine 1.28 H Est Glomerular Filtrat Rate mL/min 56 L Glucose Level 88 Calcium Level 8.2 L Phosphorus Level 3.0 Magnesium Level 2.1 Total Bilirubin 0.9 Direct Bilirubin 0.00 Indirect Bilirubin 0.9 Aspartate Amino Transf (AST/SGOT) 33 Alanine Aminotransferase (ALT/SGPT) 37 Alkaline Phosphatase 40 L Total Protein 6.2 Albumin 2.9 L Globulin 3.30 H Albumin/Globulin Ratio 0.87 Medications Medication Current Medications IV Flush (NS 3 ml) 3 ml PER PROTOCOL IV ; Start 02/24/19 at 00:00 Ondansetron HCl (Zofran Inj) 4 mg Q6H PRN IV NAUSEA/VOMITING Last administered on 02/27/19 07:41; Admin Dose 4 MG; Start 02/24/19 at 00:00 Acetaminophen (Tylenol Tab) 650 mg Q6H PRN PO .PAIN 1-3 OR TEMP; Start 02/24/19 at 00:00 Hydromorphone HCl (Dilaudid) 0.5 mg Q4H PRN IV .SEVERE PAIN 7-10 Last administered on 02/27/19 12:13; Admin Dose 0.5 MG; Start 02/24/19 at 00:00 Docusate Sodium (Colace) 100 mg Q12H PRN PO .CONSTIPATION; Start 02/24/19 at 00:00 Bisacodyl (Dulcolax) 5 mg DAILY PRN PO .CONSTIPATION; Start 02/24/19 at 00:00 Aspirin (Aspirin) 81 mg DAILY PO Last administered on 02/27/19 09:19; Admin Dose 81 MG; Start 02/24/19 at 09:00 Carvedilol (Coreg) 6.25 mg BID PO Last administered on 02/27/19 09:19; Admin Dose 6.25 MG; Start 02/24/19 at 09:00 Lisinopril (Zestril) 10 mg DAILY PO Last administered on 02/27/19 09:19; Admin Dose 10 MG; Start 02/24/19 at 09:00 Tamsulosin HCl (Flomax) 0.4 mg DAILY@2100 PO Last administered on 02/26/19 20:55; Admin Dose 0.4 MG; Start 02/24/19 at 21:00 Piperacillin Sod/ Tazobactam Sod 100 ml @ 200 mls/hr Q6 IVPB Last administered on 02/27/19 12:13; Admin Dose 200 MLS/HR; Start 02/24/19 at 08:00 Heparin Sodium (Porcine) (Heparin (5000 Units/1ml)) 5,000 unit BID SC Last administered on 02/27/19 09:21; Admin Dose 5,000 UNIT; Start 02/26/19 at 21:00 Sodium Chloride 1,000 ml @ 70 mls/hr [id number] IV Last administered on 7/30/19at 06:34; Admin Dose 70 MLS/HR; Start 02/27/19 at 00:30 Acetaminophen/ Hydrocodone Bitart ([place] ()) 1 tab Q4H PRN PO MODERATE PAIN LEVEL 4-6; Start 02/27/19 at 15:30; Status UNV DAVID ESPINAL NP Feb 27, 2019 15:17
[2019-02-27] MEDS ORDERED: HYDROCODONE/APAP (10/325) TAB PO PRN (15:30)
[2019-02-27 20:00] VITALS: BP 126/76; PULSE 80; RESP 17
[2019-02-27] MEDS: TAMSULOSIN (SR) 0.4 MG CAP PO SCH (20:45)
[2019-02-28 01:58] VITALS: BP 109/72; PULSE 74; RESP 18
[2019-02-28] MEDS: SOD CHLORIDE 0.9% 1,000 ML IV SCH ×2 (03:11→05:04)
[2019-02-28] MEDS: PIPER-TAZO 3.375 GM IV (PMX) 100 ML IVPB SCH ×2 (05:35→12:45)
[2019-02-28 08:05] VITALS: BP 123/87; PULSE 79; RESP 18
[2019-02-28] MEDS: LISINOPRIL 10 MG TAB PO SCH (08:44)
[2019-02-28] MEDS: ASPIRIN 81 MG TAB PO SCH (08:44)
[2019-02-28] MEDS: HEPARIN 5,000 UNIT/1 ML VIAL SC SCH (08:46)
--- NOTE | 2019-02-28 11:40 | PN ---
Date/Time of Note Date/Time of Note DATE: 02/28/19 TIME: 11:38 Assessment/Plan Lines/Catheters IV Catheter Type (from Nrs): Peripheral IV Kelly in Place (from Nrs): No Assessment/Plan Chief Complaint/Hosp Course 1. Abdominal pain, Cholelithiasis, cholecystitis (Positive HIDA) s/p lap criselda -Pain control -diet as tolerated -D/C ok from surgical standpoint w for drain care. F/u in office in 1 week. 2. BMI 36 with morbid obesity -Diet and medication optimization -Encourage weight loss 3. Hypertension -Diet and medication optimization -Encourage weight loss 4. Dyslipidemia -Diet and medication optimization -Encourage weight loss 5. Coronary artery disease, history of [place], atherosclerosis -Cardiac and medical optimization 6. Renal calculus -Encourage judicious fluid consumption -Outpatient urology follow-up Thank you. Patient seen and examined in collaboration with Dr. Martinez Peacock. Subjective 24 Hr Interval Summary Feels well. + flatus. No fevers, chills, sob, congested cough, cp, palpitations, snider, dizziness, n/v/d/dysuria. Tolerating diet. Exam/Review of Systems Vital Signs Vitals Vital Signs Date Temp Pulse Resp B/P (MAP) Pulse Ox O2 O2 Flow FiO2 Time Delivery Rate 02/28/19 97.7 79 18 123/87 94 08:05 (99) 02/27/19 Room Air 02:42 02/26/19 02:14 Intake and Output 02/27/19 02/27/19 02/28/19 1515:00 23:00 07:00 IntakeIntake Total 1420 ml 1300 ml 1340 ml OutputOutput Total 400 ml 40 ml 50 ml BalanceBalance 1020 ml 1260 ml 1290 ml Exam Free Text/Dictation Constitutional: alert, oriented, obese; No distress Psych: nl mood/affect; No anxiety, No confusion Head: normocephalic, atraumatic Eyes: nl conjunctiva, EOMI, PERRL; No icteric ENMT: nl external ears & nose, nl lips & teeth, mucosa pink and moist Neck: supple, non-tender; No jvd Respiratory: normal air movement; No congested cough, No labored breathing Cardiovascular: regular rate and rhythm; No edema Gastrointestinal: soft, min tender; erin serosang, min distended No firm, No rebound or guarding Genitourinary - Male: nl penis, nl scrotum Musculoskeletal: nl extremities to inspection, nl gait and stance; No joint tenderness, No swelling Extremities: normal pulses; No calf tenderness, No edema Neurological: nl mental status, nl speech, nl strength Skin: nl turgor; No rash or lesions, No diaphoresis Lymph: nl lymph nodes Results Result Diagram: 02/28/19 0543 02/28/19 0543 KERRIE HANSEN NP Feb 28, 2019 11:40
--- NOTE | 2019-02-28 14:49 | DS ---
Date/Time of Note Date/Time of Note DATE: 02/28/19 TIME: 14:46 Discharge Summary Admission/Discharge Info Admit Date/Time Feb 24, 2019 at 00:01 Discharge Date/Time Discharge Diagnosis #Cholecystitis #CAD with stent #Acute kidney injury #Obesity Patient Condition: Stable Hospital Course This is a 63-year-old male who came to the hospital due to reports of abdominal pain. He reported that pain was worse with eating. Denies vomiting nausea or diarrhea prior to admission. Patient was found to have cholecystitis. He was seen by general surgeon. He did have laparoscopic cholecystectomy with liver wedge resection/intraoperative cholangiography. He was optimized with antibiotics. We also provided her with analgesics. During his course of stay he did improve. He was otherwise optimized medically. He had a history of CAD and we optimize him with his cardiovascular medications. We will also monitor his renal panel for acute kidney injury which did improve with IV fluids. He was noted to be obese and he was advised weight reduction. He was advised outpatient follow-up with surgeon within a week. The plan of care was discussed with the patient and he verbalized understanding. On the day of discharge patient was in stable condition Discussed POC with Dr. Zarate [place] Meds Active Scripts Hydrocodone Bit-Acetaminophen (Hydrocodone Bit-APAP) 5-325MG Tablet, 1 TAB PO Q6H PRN for MODERATE PAIN LEVEL 4-6, #30 TAB Prov:DAVID ESPINAL [employer]CHITECT 02/27/19 Tamsulosin Hcl* (Flomax*) 0.4 Mg Cap.er.24h, 0.4 MG PO DAILY for 30 Days, CAP Prov:JOHNNY DURAND 01/09/15 Reported Medications Carvedilol* (Carvedilol*) 6.25 Mg Tablet, 6.25 MG PO BID, TAB 01/09/15 Simvastatin (Simvastatin) 40 Mg Tablet, 40 MG PO HS, TAB 01/09/15 Aspirin* (Aspirin* Chew) 81 Mg Tab.chew, 81 MG PO DAILY, TAB.CHEW 01/09/15 Lisinopril* (Lisinopril*) 10 Mg Tablet, 10 MG PO DAILY, TAB 01/09/15 Discontinued Scripts Nitrofurantoin Monohyd Macrocr* (Macrobid*) 100 Mg Capsr, 100 MG PO BID for 14 Days, CAP Prov:JOHNNY DURAND 6/11/15 Ketorolac Tromethamine* (Toradol*) 15 Mg/Ml Soln, 15 MG IV Q6H PRN for PAIN, #20 VIAL Prov:JOHNNY DURAND 01/09/15 Hydrocodone Bit-Acetaminophen* (Lagrange*) 10-325 Mg Tablet, 1 TAB PO Q6 PRN for PA IN, #10 TAB Prov:JOHNNY DURAND 01/09/15 Follow-up Plan Follow up with Dr. Martinez Peacock in one week Office Address [address] [place] [address] [place] [id number] Office Follow up with your primary care provider in one week Primary Care Provider Care Physician No Primary Time spent on discharge: > 30 minutes Pending Labs Laboratory Tests Test 02/28/19 05:43 White Blood Count 7.4 10^3/ul (4.8-10.8) Red Blood Count 4.23 10^6/ul (4.70-6.10) Hemoglobin 12.3 g/dl (14.0-18.0) Hematocrit 38.2 % (42.0-52.0) Mean Corpuscular Volume 90.3 fl (82.0-101.0) Mean Corpuscular Hemoglobin 29.1 pg (29.0-33.0) Mean Corpuscular Hemoglobin Concent 32.2 g/dl (32.0-37.0) Red Cell Distribution Width 13.3 % (11.5-14.5) Platelet Count 267 10^3/UL (140-415) Mean Platelet Volume 9.3 fl (7.4-10.4) Immature Granulocytes % 0.800 % (0.001-0.429) Neutrophils % 65.7 % (39.0-77.0) Lymphocytes % 19.6 % (15.0-51.0) Monocytes % 9.3 % (0.0-11.0) Eosinophils % 3.9 % (0.0-7.0) Basophils % 0.7 % (0.0-2.0) Nucleated Red Blood Cells % 0.0 /100WBC (0.0-0.0) Immature Granulocytes # 0.060 10^3/ul (0.0-0.031) Neutrophils # 4.8 10^3/ul (1.6-7.5) Lymphocytes # 1.4 10^3/ul (0.8-2.9) Monocytes # 0.7 10^3/ul (0.3-0.9) Eosinophils # 0.3 10^3/ul (0.0-0.5) Basophils # 0.1 10^3/ul (0.0-0.1) Nucleated Red Blood Cells # 0.0 10^3/ul (0.0-0.0) Sodium Level 137 mmol/L (135-144) Potassium Level 3.6 mmol/L (3.5-5.1) Chloride Level 106 mmol/L (97-110) Carbon Dioxide Level 26 mmol/L (21-31) Anion Gap 5 (5-13) Blood Urea Nitrogen 12 mg/dl (7-20) Creatinine 1.23 mg/dl (0.61-1.24) Est Glomerular Filtrat Rate mL/min 59 mL/min (>60) Glucose Level 106 mg/dl (70-220) Calcium Level 8.3 mg/dl (8.4-10.2) DAVID ESPINAL [employer] ARCHITECT Feb 28, 2019 14:49
[2019-02-28 14:57] VITALS: BP 130/65; PULSE 78; RESP 18
== END 2019-02-28 15:31 | disposition home or self-care (01) | DRG 418 ==
LOC: FTE 17:43 → 2NE 02-24 00:01
PROVIDERS: ADMIT Family Medicine; ATTEND Family Medicine
PROC: 0FT44ZZ Resection of Gallbladder, Percutaneous Endoscopic Approach (ICD-10-PCS; principal; 2019-02-24)
PROC: 0FB04ZX Excision of Liver, Percutaneous Endoscopic Approach, Diagnostic (ICD-10-PCS; 2019-02-24)
DX: K80.00 Calculus of gallbladder with acute cholecystitis without obstruction (principal); N17.9 Acute kidney failure, unspecified; E66.01 Morbid (severe) obesity due to excess calories; I25.10 Atherosclerotic heart disease of native coronary artery without angina pectoris; I10 Essential (primary) hypertension; I70.0 Atherosclerosis of aorta; K82.A1 Gangrene of gallbladder in cholecystitis; E78.5 Hyperlipidemia, unspecified; N20.0 Calculus of kidney; I25.2 Old myocardial infarction; M19.90 Unspecified osteoarthritis, unspecified site; Z95.5 Presence of coronary angioplasty implant and graft; Z68.35 Body mass index [BMI] 35.0-35.9, adult
CPT/HCPCS: 36415; 71045; 74018; 74176; 76705; 78226; 80048; 80053; 80061; 81001; 83036; 83690; 83735; 84100; 84443; 84484; 85025; 85610; 85730; 88304; 88307; 88313; 93005; 96361; 96374; 96376; A9537; J0690; J1170; J1644; J1885; J2175; J2250; J2270; J2405; J2543; J2710; J3010; J7030; J7040; J7120; Q9967